=== PATIENT | male | born 1950 | race Caucasian/White ===

== ENCOUNTER 2020-01-26 07:37 | Outpatient (REF) | payer MEDICARE, OTHER, SELFPAY ==
[2020-01-26 11:54] LABS: Anion Gap 13 (12-20); Blood Urea Nitrogen 18 mg/dL (9-16); Calcium 8.4 mg/dL (8.4-10.2); Carbon Dioxide 26 mmol/L (22-29); Chloride 107 mmol/L (96-108); Cholesterol 217 mg/dL; Estimated Glomerular Filt Rate > 60; Glucose Fasting 89 mg/dL (60-99); HDL Cholesterol 47 mg/dL; LDL Cholesterol Calculated 146 mg/dl; Potassium 4.6 mmol/l (3.3-5.1); Sodium 141 mmol/L (135-145); Triglycerides 124 mg/dL
[2020-01-26 12:15] LABS: TSH reflex Free T4 2.52 mIU/mL (0.32-4.0)
== END 2020-01-26 07:38 | disposition home or self-care (01) ==
LOC: HO.HMGCLDS 07:37
PROVIDERS: PCP Nurse Practitioner Family; Visit Provider Nurse Practitioner Family
DX: F17.200 Nicotine dependence, unspecified, uncomplicated (principal)
CPT/HCPCS: 80048; 80061; 84443

== ENCOUNTER → 2020-02-11 09:49 | Outpatient (BNVA) | payer MEDICARE, OTHER, SELFPAY | PROVIDERS: PCP Nurse Practitioner Family; Visit Provider Urology | DX: N40.1 Benign prostatic hyperplasia with lower urinary tract symptoms (principal); N13.8 Other obstructive and reflux uropathy; R39.15 Urgency of urination; N39.0 Urinary tract infection, site not specified | CPT/HCPCS: Q3014 ==

== ENCOUNTER → 2020-02-23 08:40 | Outpatient (BNVA) | payer MEDICARE, OTHER, SELFPAY | PROVIDERS: PCP Nurse Practitioner Family; Visit Provider Urology | DX: N40.1 Benign prostatic hyperplasia with lower urinary tract symptoms (principal); R39.14 Feeling of incomplete bladder emptying; F17.210 Nicotine dependence, cigarettes, uncomplicated | CPT/HCPCS: 52000; 81002; 99212 ==

== ENCOUNTER → 2020-03-02 10:08 | Outpatient (BNVA) | payer MEDICARE, OTHER, SELFPAY | PROVIDERS: PCP Nurse Practitioner Family; Visit Provider Urology | DX: Z76.89 Persons encountering health services in other specified circumstances (principal) | CPT/HCPCS: 99212 ==

== ENCOUNTER 2020-03-21 09:26 | Outpatient (REF) | payer MEDICARE, OTHER, SELFPAY ==
[2020-03-21 11:43] LABS: Cholesterol 103 mg/dL; HDL Cholesterol 29 mg/dL; LDL Cholesterol Calculated 53 mg/dl; Triglycerides 105 mg/dL
== END 2020-03-21 09:27 | disposition home or self-care (01) ==
LOC: HO.HMGCLDS 09:26
PROVIDERS: PCP Nurse Practitioner Family; Visit Provider Internal Medicine
DX: Z20.828 Contact with and (suspected) exposure to other viral communicable diseases (principal)
CPT/HCPCS: 80061; C9803; U0003

== ENCOUNTER 2020-03-29 08:53 | Outpatient (REF) | payer MEDICARE, OTHER, SELFPAY | END 2020-03-29 08:54 | disposition home or self-care (01) | LOC: HO.LNP 08:53 | PROVIDERS: Visit Provider Urology | DX: N39.0 Urinary tract infection, site not specified (principal); N40.1 Benign prostatic hyperplasia with lower urinary tract symptoms; R39.14 Feeling of incomplete bladder emptying | CPT/HCPCS: 51798; 81002; 87086; 87088; 87186; 99212 ==

== ENCOUNTER → 2020-06-28 09:14 | Outpatient (BNVA) | payer MEDICARE, OTHER, SELFPAY | PROVIDERS: PCP Nurse Practitioner Family; Visit Provider Urology | DX: N40.1 Benign prostatic hyperplasia with lower urinary tract symptoms (principal); R39.14 Feeling of incomplete bladder emptying; N39.0 Urinary tract infection, site not specified | CPT/HCPCS: 51798; 99212 ==

== ENCOUNTER 2020-07-12 08:03 | Outpatient (REF) | payer MEDICARE, OTHER, SELFPAY ==
[2020-07-12 12:13] LABS: Alanine Aminotransferase 10 U/L (0-40); Albumin Level 4.3 g/dL (3.5-5.0); Alkaline Phosphatase 95 U/L (39-117); Anion Gap 16 (12-20); Aspartate Amino Transferase 7 U/L (5-37); Bilirubin Total 0.5 mg/dL (0.0-1.0); Blood Urea Nitrogen 28 mg/dL (9-16); Calcium 9.2 mg/dL (8.4-10.2); Carbon Dioxide 23 mmol/L (22-29); Chloride 110 mmol/L (96-108); Cholesterol 194 mg/dL; Estimated Glomerular Filt Rate > 60; Glucose Fasting 122 mg/dL (60-99); HDL Cholesterol 52 mg/dL; LDL Cholesterol Calculated 122 mg/dl; Potassium 4.8 mmol/L (3.3-5.1); Sodium 144 mmol/L (135-145); Total Protein 7.5 g/dL (6.5-8.0); Triglycerides 101 mg/dL
[2020-07-12 12:17] LABS: TSH reflex Free T4 0.94 uIU/mL (0.32-4.0)
== END 2020-07-12 08:04 | disposition home or self-care (01) ==
LOC: HO.HMGCLDS 08:03
PROVIDERS: PCP Nurse Practitioner Family; Visit Provider Nurse Practitioner Family
DX: E78.5 Hyperlipidemia, unspecified (principal)
CPT/HCPCS: 36415; 80053; 80061; 84443

== ENCOUNTER 2020-07-14 08:19 | Outpatient (REF) | payer MEDICARE, OTHER, SELFPAY ==
[2020-07-14 13:08] LABS: Estimated Average Glucose 105 mg/dL; Hemoglobin A1c % 5.3 %
== END 2020-07-14 08:20 | disposition home or self-care (01) ==
LOC: HO.HMGCLDS 08:19
PROVIDERS: PCP Nurse Practitioner Family; Visit Provider Nurse Practitioner Family
DX: R73.01 Impaired fasting glucose (principal)
CPT/HCPCS: 36415; 83036

== ENCOUNTER 2020-07-27 09:34 | Outpatient (REF) | payer MEDICARE, OTHER, SELFPAY ==
--- NOTE | ~2020-07-27 | US_ITS ---
EXAMINATION: US EXTRACRANIAL CAROTID DUPLEX, BILATERAL CLINICAL INFORMATION: This is a 69-year-old male with history of tobacco use, hyperlipidemia. Carotid artery disease. COMPARISON: None TECHNIQUE: Real-time ultrasound and Doppler techniques (integrating B-mode 2-D vascular images, Doppler spectral analysis and color-flow Doppler imaging) were utilized to interrogate the extracranial carotid arteries, the vertebral arteries and proximal subclavian arteries bilaterally. The degree of stenosis is determined by criteria similar to NASCET. FINDINGS: Right Side: 1. There is minimal atherosclerotic plaque seen in the bifurcation/proximal ICA region. 2. The common carotid artery PSV proximally is 89 cm/s and distally 60 cm/s. 3. The proximal internal carotid artery velocities are 49 cm/s systolic and 12 cm/s diastolic. 4. The proximal external carotid artery PSV is 86 cm/s. 5. The vertebral artery shows antegrade flow. 6. The subclavian artery waveforms are normal. Left Side: 1. There is a normal atherosclerotic plaque seen in the bifurcation/proximal ICA region. 2. The common carotid artery PSV proximally is 96 cm/s and distally 74 cm/s. 3. The proximal internal carotid artery velocities are 70 cm/s systolic and 14 cm/s diastolic. 4. The proximal external carotid artery PSV is 114 cm/s. 5. The vertebral artery shows antegrade flow. 6. The subclavian artery waveforms are normal. US/US carotid duplex BI IMPRESSION: 1. RIGHT: Minimal, non-hemodynamically significant stenosis of the proximal right internal carotid artery corresponding to a 0-49% stenosis by velocity criteria. 2. LEFT: Minimal, non-hemodynamically significant stenosis of the proximal left internal carotid artery corresponding to a 0-49% stenosis by velocity criteria. 3. An arrhythmia was demonstrated during the duplex portion of the examination. This would be best further evaluated with an EKG.
== END 2020-07-27 09:35 | disposition home or self-care (01) ==
LOC: HO.US 09:34
PROVIDERS: PCP Nurse Practitioner Family; Visit Provider Nurse Practitioner Family
DX: I65.23 Occlusion and stenosis of bilateral carotid arteries (principal); E78.5 Hyperlipidemia, unspecified; F17.200 Nicotine dependence, unspecified, uncomplicated
CPT/HCPCS: 93880

== ENCOUNTER → 2020-10-07 12:33 | Outpatient (REF) | payer MEDICARE, OTHER, SELFPAY ==
--- NOTE | 2020-10-07 13:05 | ECG_ITS ---
Hook-up date: 2020-10-07 12:56:00 Duration: 47:59:00 Test Indications: PALPITATIONS, SOB Medications: [id number] QRS complexes 7 Ventricular ectopics which represent <1 % of total QRS comp. 404 Supraventricular ectopics which represent <1 % of total QRS comp. * Paced QRS complexs which represent % of total QRS comp. VENTRICULAR ECTOPY 7 Isolated 0 Bigeminal Cycles 0 Couplets 0 Runs 0 Beats in Runs * Beats LONGEST at * BPM at :: -- * Beats FASTEST at * BPM at :: -- SUPRAVENTRICULAR ECTOPY 286 Isolated 40 Couplets 10 Runs 38 Beats in Runs 10 Beats LONGEST at 155 BPM at 17:45:20 2020-10-07 3 Beats FASTEST at 180 BPM at 16:06:54 2020-10-08 HEART RATES 45 MIN at 07:29:25 2020-10-09 75 AVG 130 MAX at 13:04:50 2020-10-07 LONGEST RR 1.6080 secs at 07:29:20 2020-10-09 S-T LEVELS Channel 1 - 128 mm at 12:56:00 2020-10-07 - 128 mm at 12:56:00 2020-10-07 Channel 2 - 128 mm at 12:56:00 2020-10-07 - 128 mm at 12:56:00 2020-10-07 Channel 3 - 128 mm at 03:21:51 -- - 128 mm at 03:21:51 Underlying rhythm is sinus; Average ventricular rate 75/min; Occasional PACs with some short runs; Rare PVCs; Patient did not report any symptoms in the diary Referred By: Javi Blair Overread By: NATASHA RODAS
== END ==
LOC: HO.CARD 12:33
PROVIDERS: Visit Provider Nurse Practitioner Family
DX: R00.2 Palpitations (principal); R06.02 Shortness of breath; I49.9 Cardiac arrhythmia, unspecified
CPT/HCPCS: 93225; 93226

== ENCOUNTER 2020-12-27 12:46 | Outpatient (REF) | payer MEDICARE, OTHER, SELFPAY | END 2020-12-27 12:47 | disposition home or self-care (01) | LOC: HO.LNP 12:46 | PROVIDERS: Visit Provider Urology | DX: N39.0 Urinary tract infection, site not specified (principal); N40.1 Benign prostatic hyperplasia with lower urinary tract symptoms; R39.14 Feeling of incomplete bladder emptying | CPT/HCPCS: 51798; 87086; 87088; 87186; 99212 ==

== ENCOUNTER 2021-01-11 11:19 | Outpatient (REF) | payer MEDICARE, OTHER, SELFPAY ==
--- NOTE | ~2021-01-11 | XR_ITS ---
EXAMINATION: XR HIP, LEFT CLINICAL INFORMATION: Left hip pain COMPARISON: None TECHNIQUE: Two views of the left hip. FINDINGS: Normal alignment with no fracture. Mild osteoarthritis with sclerosis and osteophyte formation along the superolateral acetabulum. There is a small rounded ossification along the superolateral acetabular rim which is most likely degenerative, possibly a remote fracture fragment. XR/XR hip LT min 2V IMPRESSION: Mild left hip osteoarthritis. No acute abnormality.
--- NOTE | ~2021-01-11 | XR_ITS ---
EXAMINATION: XR LUMBOSACRAL SPINE CLINICAL INFORMATION: M54.50 - Low back pain, unspecified COMPARISON: None TECHNIQUE: Three views of the lumbosacral spine. 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 Vertebral bodies are normal in height. There is normal lumbar lordosis. No vertebral compression or destructive process. There are multilevel degenerative disc and degenerative facet changes along with variable multilevel bridging anterior and lateral vertebral osteophytes. There is a borderline grade 0-1 spondylolisthesis at L4-L5 likely related to the degenerative changes. The SI joints and remainder of visualized sacrum are unremarkable. XR/XR lumbar spine 2-3V IMPRESSION: 1. Multilevel degenerative disc and degenerative facet changes with variable multilevel bridging osteophytes. 2. Borderline grade 0-1 spondylolisthesis L4-L5 likely related to the degenerative changes. 3. 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
== END 2021-01-11 11:20 | disposition home or self-care (01) ==
LOC: HO.HMGCX 11:19
PROVIDERS: PCP Nurse Practitioner Family; Visit Provider Nurse Practitioner Family
DX: M25.552 Pain in left hip (principal); M54.50 Low back pain, unspecified
CPT/HCPCS: 72100; 73502

== ENCOUNTER 2021-01-12 07:47 | Outpatient (REF) | payer MEDICARE, OTHER, SELFPAY ==
[2021-01-12 11:34] LABS: Appearance Urine CLOUDY; Color Urine YELLOW; Glucose Urine UA NEG (NEG); Leukocyte Esterase Urine 2+ (NEG); Nitrite Urine POS (NEG); Specific Gravity - Urine 1.015 (1.005-1.025); UACC Culture Trigger YES; Urine Blood 1+ (NEG); Urine Ketones NEG (NEG); Urine Protein TRACE MG/DL (NEG-TRACE)
[2021-01-12 11:42] LABS: Bacteria Urine 1+ /LPF; Mucus Urine 1+ /LPF; Squamous Epithelial Cell Urine TRACE /LPF; WBC Urine 30-49 /HPF (0-4)
[2021-01-12 12:01] LABS: Alanine Aminotransferase 6 U/L (0-40); Alkaline Phosphatase 80 U/L (39-117); Anion Gap 11 (12-20); Aspartate Amino Transferase 7 U/L (5-37); Bilirubin Total 0.6 mg/dL (0.0-1.0); Blood Urea Nitrogen 16 mg/dL (9-16); Calcium 8.6 mg/dL (8.4-10.2); Carbon Dioxide 23 mmol/L (22-29); Chloride 111 mmol/L (96-108); Cholesterol 166 mg/dL; Estimated Glomerular Filt Rate > 60; Glucose Fasting 104 mg/dL (60-99); HDL Cholesterol 40 mg/dL; LDL Cholesterol Calculated 105 mg/dl; Potassium 4.3 mmol/L (3.3-5.1); Sodium 141 mmol/L (135-145); Total Protein 6.8 g/dL (6.5-8.0); Triglycerides 107 mg/dL
[2021-01-12 12:09] LABS: TSH reflex Free T4 3.05 uIU/mL (0.32-4.0)
== END 2021-01-12 07:48 | disposition home or self-care (01) ==
LOC: HO.HMGCLDS 07:47
PROVIDERS: PCP Nurse Practitioner Family; Visit Provider Nurse Practitioner Family
DX: I10 Essential (primary) hypertension (principal)
CPT/HCPCS: 36415; 80053; 80061; 81001; 84443; 87086; 87088; 87186

== ENCOUNTER 2021-04-03 12:04 | Outpatient (REF) | payer MEDICARE, OTHER, SELFPAY ==
--- NOTE | 2021-04-04 12:26 | MHC.AU.ANO ---
Adult Audiological Evaluation Date of Visit: 04/03/21 [employer] Manufacturing Leader Used: Not Applicable Reason for Appointment: Audiologic evaluation due to increasing hearing difficulties, right ear greater than left. Dale reports his primary care has periodically cleared wax from his ears; however, the hearing difficulties have increased. Has hearing been tested previously?: No Hearing Handicap Inventory: HHIE SCORE: 20 Based on HHIE score, patient has: Mild to moderate perceived hearing handicap Ear History: Family History of Hearing Loss?: Yes: Father, Daughter, and Nephew (since ) Ear used on the phone: Left Ear History of occupational noise exposure?: Yes History: History: No Medical History: Medical History: High Blood Pressure, Arthritis, Tobacco Use Medication List: Finesteride, Methenamine Hippurate, Lisinopril, Meloxicam, Vitamin C Otoscopy: Right Ear: Partially occluding cerumen with question of impacted cerumen very deep Left Ear: Unremarkable Tympanometry: Tympanometry performed due to: To assess integrity of the middle ear system Right Ear: Non-compliant Middle Ear System (Type B) Left Ear: Normal Middle Ear System (Type A) Otoacoustic Emissions Not performed at today's visit. Hearing Evaluation: Transducer(s) Used: Insert Earphones Bone Conduction Method: Conventional Audiometry Stimuli Used: Pure Tones Right Ear: Description of Hearing: Severe to profound mixed hearing loss Left Ear: Description of Hearing: Moderate to severe sensorineural hearing loss Speech Recognition Threshold (SRT): Method Used: Monitored Live Voice Stimuli Used: Spondee Words Right Ear: 65 dB HL Left Ear: 45 dB HL Word Discrimination: Method: Recorded Lists Word Lists Used: NU-6 Right Ear: 84% at 95 dB HL Left Ear: 84% at 85 dB HL Most Comfortable Level (MCL): Right Ear: 95 dB HL Left Ear: 85 dB HL Interpretation of Results: With this very significant asymmetric hearing loss, Dale may know someone is speaking; however, he will have difficulty understanding what was said. He will also have difficulty hearing many environmental sounds. The asymmetry is likely related to the non-functioning right middle ear system. If the middle ear dysfunction resolves, the right hearing thresholds will likely improve and be similar to the left ear levels. Recommendations: - Referral to Ear, Nose, and Throat to address right ear cerumen and middle ear dysfunction. Audiologic re-evaluation should be performed if further cerumen can be removed. - Trial with amplification is recommended. Medical clearance from a physician is required before fitting. It is noted Dale's current [facility] [employer] Medicaid Plan does not cover hearing aids. If Dale would like to obtain hearing aids, he is advised to contact [facility] to determine if he may be able to change to a plan which has hearing aid coverage. Dale may also contact [facility] at [phone] to determine if he may be eligible for hearing aids through this state program. - Audiological re-evaluation in one year. Will send a reminder card. Diagnosis: Primary Diagnosis: H90.3 Bilateral Sensorineural Hearing Loss Secondary Diagnosis: H69.91 Unspecified Eustachian Tube Dysfunction, Right Ear Services Performed: Comprehensive Audiological Evaluation (CPT 03515) Tympanometry (CPT 90651) Signature: Provider: Carmela Seals, CCC-A
== END 2021-04-03 12:05 | disposition home or self-care (01) ==
LOC: HO.SH 12:04
PROVIDERS: Visit Provider Nurse Practitioner Family
DX: H90.3 Sensorineural hearing loss, bilateral (principal); H69.91 Unspecified Eustachian tube disorder, right ear
CPT/HCPCS: 92557; 92567

== ENCOUNTER 2021-06-28 13:02 | Outpatient (REF) | payer MEDICARE, OTHER, SELFPAY | END 2021-06-28 13:03 | disposition home or self-care (01) | LOC: HO.LAB 13:02 | PROVIDERS: PCP Nurse Practitioner Family; Visit Provider Urology | DX: N39.0 Urinary tract infection, site not specified (principal); N52.9 Male erectile dysfunction, unspecified; F17.210 Nicotine dependence, cigarettes, uncomplicated; N40.1 Benign prostatic hyperplasia with lower urinary tract symptoms; R39.14 Feeling of incomplete bladder emptying | CPT/HCPCS: 51798; 87086; 87088; 87186; 99212 ==

== ENCOUNTER → 2021-12-29 09:46 | Outpatient (BNVA) | payer MEDICARE, OTHER, SELFPAY | PROVIDERS: PCP Nurse Practitioner Family; Visit Provider Urology | DX: N40.1 Benign prostatic hyperplasia with lower urinary tract symptoms (principal); R39.14 Feeling of incomplete bladder emptying; R39.15 Urgency of urination; N39.0 Urinary tract infection, site not specified | CPT/HCPCS: 51798; 99212 ==

== ENCOUNTER 2022-02-02 08:36 | Outpatient (REF) | payer MEDICARE, SELFPAY ==
[2022-02-02 11:31] LABS: Appearance Urine Clear; Color Urine Yellow; Glucose Urine UA Negative (Negative); Leukocyte Esterase Urine Trace (Negative); Nitrite Urine Negative (Negative); Specific Gravity - Urine 1.015 (1.005-1.025); UMIC TRIGGER UACC YES; Urine Blood Negative (Negative); Urine Ketones Negative (Negative); Urine Protein Trace mg/dL (Neg-Trace)
[2022-02-02 11:40] LABS: Bacteria Urine None Seen (None Seen); Hyaline Casts Urine 0-2 /LPF (0-2); RBC Urine 0-2 /HPF (0-2); Squamous Epithelial Cell Urine 0-2 /HPF (0-2); WBC Urine 0-5 /HPF (0-5)
[2022-02-02 12:16] LABS: TSH reflex Free T4 1.47 uIU/mL (0.32-4.0)
[2022-02-02 12:26] LABS: Alanine Aminotransferase 10 U/L (0-40); Albumin Level 4.3 g/dL (3.5-5.0); Alkaline Phosphatase 73 U/L (39-117); Anion Gap 17 (12-20); Aspartate Amino Transferase 10 U/L (5-37); Bilirubin Total 0.7 mg/dL (0.0-1.0); Blood Urea Nitrogen 20 mg/dL (9-16); Calcium 8.9 mg/dL (8.4-10.2); Carbon Dioxide 21 mmol/L (22-29); Chloride 109 mmol/L (96-108); Cholesterol 199 mg/dL; Estimated Glomerular Filt Rate 58; Glucose Fasting 100 mg/dL (60-99); HDL Cholesterol 44 mg/dL; LDL Cholesterol Calculated 133 mg/dl; Potassium 4.7 mmol/L (3.3-5.1); Sodium 142 mmol/L (135-145); Total Protein 6.9 g/dL (6.5-8.0); Triglycerides 111 mg/dL
== END 2022-02-02 08:37 | disposition home or self-care (01) ==
LOC: HO.HMGCLDS 08:36
PROVIDERS: PCP Nurse Practitioner Family; Visit Provider Nurse Practitioner Family
DX: I10 Essential (primary) hypertension (principal)
CPT/HCPCS: 36415; 80053; 80061; 81001; 84443

== ENCOUNTER 2022-06-26 10:03 | Outpatient (REF) | payer MEDICARE, MEDICAID, SELFPAY ==
[2022-06-26 12:43] LABS: Prostate Specific Antigen 1.07 ng/mL (<0.05-4.0)
== END 2022-06-26 10:04 | disposition home or self-care (01) ==
LOC: HO.HMGCLDS 10:03
PROVIDERS: PCP Nurse Practitioner Family; Visit Provider Urology
DX: N40.1 Benign prostatic hyperplasia with lower urinary tract symptoms (principal); Z12.5 Encounter for screening for malignant neoplasm of prostate
CPT/HCPCS: 36415; 84153

== ENCOUNTER → 2022-07-03 08:30 | Outpatient (BNVA) | payer MEDICARE, OTHER, SELFPAY | PROVIDERS: PCP Nurse Practitioner Family; Visit Provider Urology | DX: N40.1 Benign prostatic hyperplasia with lower urinary tract symptoms (principal); N13.8 Other obstructive and reflux uropathy; R39.15 Urgency of urination; N52.9 Male erectile dysfunction, unspecified; Z79.899 Other long term (current) drug therapy | CPT/HCPCS: 51798; 99212 ==

== ENCOUNTER 2023-01-03 08:09 | Outpatient (AMB) | payer MEDICARE, MEDICAID, SELFPAY ==
--- NOTE | 2023-01-03 08:26 | A.OFFVIS_ITS ---
Intake Intake Visit Reasons: 6m/PVR Intake Note: Patient is Present for Follow Up PVR Urology Medication: Bethanechol, Finasteride, Methenamine Antibiotic Allergies:None Blood Thinners: None [facility]: [facility] PVR: 365 Allergies No Known Allergies [No Known Allergies*] Allergy (Verified 01/03/23 08:27) Medication List - Last Reconciled 01/03/23 by Clint Wong MD ascorbic acid (vitamin C) 1 g PO DAILY 90 days bethanechol chloride 50 mg PO BID 90 days finasteride 5 mg PO DAILY 90 days lisinopril 10 mg PO DAILY 90 days meloxicam 7.5 mg PO DAILY PRN 30 days methenamine hippurate 1 g PO DAILY 90 days rosuvastatin (Crestor) 10 mg PO DAILY 90 days HPI HPI Comments History of Present Illness Details Dale is a pleasant male. He is a patient of Dr. Asencio. he seen for the following urologic conditions - neurogenic bladder PVR 360 On bethanechol with vitamin-C and methenamine Discussed InterStim again Continue current medication Lower Urinary Tract Symptoms: Prior treatments include 09/09 office laser procedure 04/12 laser anterior tissue - post procedure retention and hematuria, recurring UTI. - 08/11 suppression antibiotics 3 months Keflex Prostate Symptom Score Moderate (9-19), Bother 3. Symptoms include weak stream, nocturia (>2), and are improving. Results from testing include cystoscopy Trilobar hypertrophy anterior tissue renal/bladder us Yes date 01/03/2017 PVR 122 prostate size 95 Prior Prostate Score severe. PSA 12/09 3.65, 01/10 4.9, 08/11 1.8. Prostate volume 50+gm. Testing at next visit will include PVR PFSH Medical History Smoker Radiculitis, cervical Smoker Surgical History History of transurethral resection of prostate Webbed fingers of both hands Family History Father Chewing tobacco use Mother Skin cancer Smoker Brother No problems noted. Sister No problems noted. Daughter No problems noted. Social History Housing: Apartment Alcohol intake: former Patient Tobacco Use Status: Current everyday Tobacco user Cigarette Packs Per Day: 1 Cigarettes Per Day: 15 e-Cigarette/Vaping Use: Never Used Second Hand Smoke Exposure: No service: No Current occupational status: retired Cognitive needs: No Hearing needs: No Vision needs: No Review of Systems Const Denies chills and Denies fever(s) Card Reports no additional complaints and Denies syncope Resp Denies cough GI Denies abdominal pain and Denies heartburn Reports as per HPI and Denies change in libido Neuro Denies syncope Psych Denies change in libido Endo Denies change in libido Physical Exam Const General: cooperative, healthy appearing, comfortable and no acute distress Orientation/consciousness: patient oriented x3 HEENT Face and sinus: Yes normal facial exam Mouth: moist mucous membranes Neck Neck: Yes normal visual inspection, Yes full ROM and Yes trachea midline Chest Chest palpation & inspection: normal inspection of the chest Resp Effort & Inspection: normal respiratory effort, able to speak in complete sentences and no respiratory distress GI Inspection: Yes normal to inspection Back/Spine/Pelvis Cervical Spine: normal cervical lordosis Thoracic/Lumbar Spine: thoracic and lumbar spine normal to inspection Skin General skin exam: no rashes or lesions noted Neuro General: patient oriented x3, gait normal, tone normal and moves all extremities Extrem General: Yes normal to inspection and Yes capillary refill normal Office Procedures Post Void Residual Post Residual Void Post Void Residual (PVR): 365 [id number] Void Residual by ultrasound Results AMB Urinalysis, Automated UA Leukoctes 0 Ten/uL Last Edit by HARJEET Neri on 01/03/23 08:38 UA Nitrite Negative Last Edit by HARJEET Neri on 01/03/23 08:38 UA Urobilinogen 0.2 mg/dL Last Edit by HARJEET Neri on 01/03/23 08:3 8 UA Protein 0 mg/dL Last Edit by HARJEET Neri on 01/03/23 08:38 UA pH 6.0 Last Edit by HARJEET Neri on 01/03/23 08:38 UA Blood 0 Eris/uL Last Edit by HARJEET Neri on 01/03/23 08:38 UA Specific [place] 1.015 Last Edit by HARJEET Neri on 01/03/23 08: 38 UA Ketone Negative Last Edit by HARJEET Neri on 01/03/23 08:38 UA Bilirubin 0 mg/dL Last Edit by HARJEET Neri on 01/03/23 08:38 UA Glucose 0 mg/dL Last Edit by HARJEET Neri on 01/03/23 08:38 Results Reviewed Results Reviewed: Laboratory Last Values Urine pH (Auto) 6.0 01/03/23 08:31 Specific [place] (Auto) 1.015 01/03/23 08:31 Urine Protein (Auto) 0 mg/dL 01/03/23 08:31 Glucose (UA)(Auto) 0 mg/dL 01/03/23 08:31 Urine Ketones (Auto) Negative 01/03/23 08:31 Urine Blood (Auto) 0 Eris/uL 01/03/23 08:31 Urine Nitrite (Auto) Negative 01/03/23 08:31 Urine Bilirubin (Auto) 0 mg/dL 01/03/23 08:31 Urine Urobilinogen (Auto) 0.2 mg/dL 01/03/23 08:31 Leukocyte Esterase (Auto) 0 Ten/uL 01/03/23 08:31 Assessment & Plan Assessment & Plan (1) Recurrent UTI (urinary tract infection): Comment: Failed suppression for 3 months September 2019 Code(s): N39.0 - Urinary tract infection, site not specified (2) Incomplete emptying of bladder due to benign prostatic hyperplasia: Code(s): N40.1 - Benign prostatic hyperplasia with lower urinary tract symptoms; R39.14 - Feeling of incomplete bladder emptying (3) Hypotonic neurogenic bladder: Code(s): N31.9 - Neuromuscular dysfunction of bladder, unspecified Plan Six month follow-up PVR Orders: Orders AMB Post Void Residual by ultrasound Today N40.1 - Benign prostatic hyperplasia with lower urinary tract symptoms, R39.14 - Feeling of incomplete bladder emptying AMB Urinalysis Automated Today Z13.9 - Encounter for screening, unspecified Medications: Refilled methenamine hippurate 1 g PO DAILY 90 tabs 1RF 90 days N39.0 - Urinary tract infection, site not specified ascorbic acid (vitamin C) 1 g PO DAILY 90 tabs 1RF 90 days N39.0 - Urinary tract infection, site not specified bethanechol chloride 50 mg PO BID 180 tabs 1RF 90 days N40.1 - Benign prostatic hyperplasia with lower urinary tract symptoms, R39.14 - Feeling of incomplete bladder emptying Patient Instructions: Imaging studies, laboratory and physical exam results were discussed and reviewed in detail. No major barriers to patient understanding were identified. An opportunity to ask questions regarding the treatment plan was provided. All questions were answered. The patient expressed understanding and agreement with the above treatment plan. The patient is aware they should contact our office by phone for worsening of their current condition or the appearance of new urologic symptoms. Compliance is encouraged with any medications and followup testing that is ordered. It is a privilege to participate in the urologic care of your patient. If you have any questions or concerns regarding treatment for the above conditions, or other urologic issues, please do not hesitate to contact me. The office telephone contact is [phone]. This note is constructed using voice recognition software. While every effort has been made to ensure accuracy railroad track inspector errors may have been included. Yours sincerely, Dr Clint Wong MD, [facility] - Urology Providers of Expert, Compassionate Care for the Genitourinary System Coding Level of Care Code Est Pt Level 3 (54406) Diagnoses Recurrent UTI (urinary tract infection) N39.0 Incomplete emptying of bladder due to benign prostatic hyperplasia N40.1; R39.14 Hypotonic neurogenic bladder N31.9 CPT Codes Post Residual Void - PVR CPT Code: 71644-Evji Void Residual by ultrasound ([id number])
== END 2023-01-03 08:47 | disposition home or self-care (01) ==
PROVIDERS: PCP Nurse Practitioner Family; Visit Provider Urology
DX: N39.0 Urinary tract infection, site not specified (principal); N40.1 Benign prostatic hyperplasia with lower urinary tract symptoms; R39.14 Feeling of incomplete bladder emptying; N31.9 Neuromuscular dysfunction of bladder, unspecified; Z13.9 Encounter for screening, unspecified
CPT/HCPCS: 99213

== ENCOUNTER → 2023-01-03 08:09 | Outpatient (BNVA) | payer MEDICARE, MEDICAID, SELFPAY | PROVIDERS: Visit Provider Urology | DX: N31.9 Neuromuscular dysfunction of bladder, unspecified (principal); N40.1 Benign prostatic hyperplasia with lower urinary tract symptoms; R39.14 Feeling of incomplete bladder emptying; N39.0 Urinary tract infection, site not specified | CPT/HCPCS: 51798; 81003; 99212 ==

== ENCOUNTER 2023-04-10 14:41 | Outpatient (AMB) | payer MEDICARE, SELFPAY ==
--- NOTE | 2023-04-10 14:43 | MHC.PC.OV ---
Vital Signs 04/10/23 14:49 Weight 129 lb BP 128/72 Blood Pressure Location Rt brachial Position Sitting Pulse 80 Pulse Source Pulse Oximeter Pulse Oximetry (%) 97 Oxygen Delivery Method Room Air Intake Visit Reasons: AWV [id number] 08/23/2017 Allergies No Known Allergies [No Known Allergies*] Allergy (Verified 04/10/23 14:49) Tobacco use date assessed: 04/10/23 Fall risk assessment: No Falls in past year Last assessed Fall Risk: 04/10/23 Dental Screening Dental Screen Date: 04/10/23 Did you have a dental visit in the last 12 months?: No Did you have a dental problem in the last 6 months where you did not have access to dental care?: No Was dental information given to patient?: Patient has dentist [facility] Medical History Smoker Radiculitis, cervical Smoker Surgical History History of transurethral resection of prostate Webbed fingers of both hands Family History Father Chewing tobacco use Mother Skin cancer Smoker Brother No problems noted. Sister No problems noted. Daughter No problems noted. Social History Housing: Apartment Alcohol intake: former Patient Tobacco Use Status: Current everyday Tobacco user Cigarette Packs Per Day: 1 Cigarettes Per Day: 15 e-Cigarette/Vaping Use: Never Used Second Hand Smoke Exposure: No service: No Current occupational status: retired Cognitive needs: No Hearing needs: No Vision needs: Yes Questionnaire Thrive Questionnaire Date Thrive assessed: 08/08/22 KARLIE-7 AMB Questionnaire KARLIE-7 Date KARLIE - 7 assessed: 08/08/22 Source: Developed by Drs. Aashish Lawton, Apolonia López, Wilfrido Concepcion and colleagues, with an educational jefferson from [employer]. Physical exam (Primary Care) Vital Signs: Last Vital Signs Pulse 80 04/10/23 14:49 BP 128/72 04/10/23 14:49 Pulse Ox 97 04/10/23 14:49 Oxygen Delivery Method Room Air 04/10/23 14:49 Tobacco/Smoking Status: Tobacco use Status Tobacco use date assessed 04/10/23 04/10/23 14:51 Patient Tobacco Use Status Current everyday Tobacco 04/10/23 14:46 e-Cigarette/Vaping Use Never Used 04/10/23 14:46 Thrive Assessment: Date of Thrive Assessment Date Thrive assessed 08/08/22 04/10/23 14:46 Coding
[2023-04-10 14:49] VITALS: BP 128/72; PULSE 80; O2SAT 97
--- NOTE | 2023-04-10 15:05 | AM.OFFVISMDC ---
Intake Vital Signs 04/10/23 14:49 Weight 129 lb BP 128/72 Blood Pressure Location Rt brachial Position Sitting Pulse 80 Pulse Source Pulse Oximeter Pulse Oximetry (%) 97 Oxygen Delivery Method Room Air Intake Visit Reasons: AWV G0438 08/23/2017 Allergies No Known Allergies [No Known Allergies*] Allergy (Verified 04/10/23 14:49) HPI AWV G0438 08/23/2017 HPI Details Pt is here for an AWV. Denies fever, chills, and dizziness. [place] of care not filled out. PPP will be scanned in chart and copy will be given to pt. [facility] Medical History Smoker Radiculitis, cervical Smoker Surgical History History of transurethral resection of prostate Webbed fingers of both hands Family History Father Chewing tobacco use Mother Skin cancer Smoker Brother No problems noted. Sister No problems noted. Daughter No problems noted. Social History Housing: Apartment Alcohol intake: former Patient Tobacco Use Status: Current everyday Tobacco user Cigarette Packs Per Day: 1 Cigarettes Per Day: 15 e-Cigarette/Vaping Use: Never Used Second Hand Smoke Exposure: No service: No Current occupational status: retired Cognitive needs: No Hearing needs: No Vision needs: No Questionnaire Medicare Wellness Checkup [age] What gender do you identify with?: male During the past 4 weeks, how much have you been bothered by emotional problems such as feeling anxious, depressed, irritable, sad or downhearted, and blue?: not at all During the past 4 weeks, has your physical & emotional health limited your social activities with family, friends, neighbors, or groups?: not at all During the past 4 weeks, how much bodily pain have you generally had?: very mild pain During the past 4 weeks, was someone available to help you if you needed & wanted help?: no, not at all During the past 4 weeks, what was the hardest physical activity you could do for at least 2 minutes?: very light Can you get to places out of walking distance without help? (For eg., can you travel alone on buses, taxis or drive your car?): Yes Can you go shopping for groceries or clothes without someone's help?: Yes Can you prepare your own meals?: Yes Can you do your housework without help?: Yes Because of any health problems, do you need the help of another person with your personal care needs such as eating, bathing, dressing or getting around the house?: No Can you handle your own money without help?: Yes During the past 4 weeks, how would you rate your health in general?: good During the past 4 weeks how have things been going for you?: pretty well Are you having difficulties driving your car?: no Do you always fasten your seat belt when you are in a car?: yes, usually During past 4 weeks, have you been bothered by the following: never: Falling or dizzy when standing up, Sexual problems?, Trouble eating well?, Teeth or denture problems?, Problems using the telephone? and Tiredness or fatigue? Have you fallen 2 or more times in the past year?: No Are you afraid of falling?: No Are you a smoker?: yes, and I might quit During the past 4 weeks, how many drinks of wine, beer, or other alcoholic beverages did you have?: no alcohol at all Do you exercise for about 20 minutes 3 or more times a week?: no, I usually do not exercise this much Have you been given information to help with the following?: no: Hazards in your house that might hurt you? and no: Keeping track of your medications? How often do you have trouble taking medicines the way you have been told to take them?: I always take medicine as prescribed How confident are you that you can control & manage most of your health problems?: somewhat confident What is your race?: White Mini Mental State Exam (MMSE) Orientation What is the (year) (season) (date) (day) (month)?: year (2023) Where are we (state) (county) (town or city) (hospital) (floor)?: state (ok) Registration Name of 3 unrelated objects clearly and slowly, then ask patient to repeat all 3 of them. (1st repeat determines score. Make sure they can repeat all three): object 1, object 2 and object 3 Attention & Calculation (CHOOSE ONE) Spell WORLD backwards (DLROW): 5 letters Recall Ask patient to repeat the 3 items from question #3.: object 1, object 2 and object 3 Language Show patient a wristwatch & ask what it is. Repeat for pencil.: watch and pencil Ask the patient to repeat the phrase 'No ifs, ands, or buts' after you.: correct Ask the patient to 'take a piece of paper with their right hand' 'fold paper in half' 'place paper on floor': take paper in right hand, fold paper in half and place paper on floor Print the sentence 'CLOSE YOUR EYES' on a piece. If patient actually closes eyes then score.: followed written direction Give patient a blank piece of paper & ask to write a sentence. Score if it contains a noun & verb.: sentence contains subject and verb Ask patient to copy figure of intersecting pentagons exactly. Score if all 10 angles & 2 intersects are included.: all 10 angles present & 2 are intersected Score Score: 22 Activity of Daily Living Bathing - sponge bath, tub bath or shower: receives no assistance (gets in/out by self, if usual bathing means Dressing - getting clothes from closets & drawers, including inner/outer garments & fasteners.: gets clothes & gets completely dressed without help Toileting - going to the 'toilet room' for urine/bowel elimination & cleaning self/arranging clothes: goes to toilet room, cleans self, arranges clothes without help Transfer: moves in & out of bed and chair without help (may use support object) Continence: controls urination/bowel movements completely by self Feeding: feeds self without help Total Score: 0 Information obtained from: patient Using telephone: independent Traveling: independent Shopping: independent Preparing meals: independent Housework: independent Taking medicine: independent Managing money: independent PHQ-9 Over the last 2 weeks, how often have you been bothered by any of the following problems? 1. Little interest or pleasure in doing things: not at all 2. Feeling down, depressed, or hopeless: not at all 3. Trouble falling or staying asleep, or sleeping too much: not at all 4. Feeling tired or having little energy: not at all 5. Poor appetite or overeating: not at all 6. Feeling bad about yourself - or that you are a failure or have let yourself or your family down: not at all 7. Trouble concentrating on things, such as reading the newspaper or watching television: not at all 8. Moving or speaking so slowly that other people could have noticed. Or the opposite - being so fidgety or restless that you have been moving around a lot more than usual: not at all 9. Thoughts that you would be better off or of hurting yourself in some way: not at all Total score: 0 Depression Screening Interpretation: Negative Depression Screening Done: Yes 96786 - PHQ-9 Billing: Yes Source: Developed by Drs. Aashish Lawton, Apolonia López, Wilfrido Concepcion and colleagues, with an educational jefferson from [employer]. Review of Systems Const Reports as per HPI Physical Exam Vital Signs: Last Vital Signs Pulse 80 04/10/23 14:49 BP 128/72 04/10/23 14:49 Pulse Ox 97 04/10/23 14:49 Oxygen Delivery Method Room Air 04/10/23 14:49 Const General: cooperative Orientation/consciousness: patient oriented x3 Neuro Other: - romberg, can tandem walk, can walk and turn, can rise from sitting to standing, did not pass whisper test General: patient oriented x3 Psych Appearance: grossly normal Mental Status: mental status grossly normal Speech and movement: Normal speech and movement present Affect: normal affect Attitude: cooperative Thought process: Normal thought process present Thought content: Normal thought content present Insight: Good insight present (Psych) Judgement: Good judgement present (Psych) Assessment & Plan Assessment & Plan (1) Decreased hearing: Code(s): H91.90 - Unspecified hearing loss, unspecified ear Plan: Referred for hearing screen (2) Encounter for annual wellness visit (AWV) in Medicare patient: Code(s): Z00.00 - Encounter for general adult medical examination without abnormal findings Plan: Forms given to pt Plan The patient agreed to the use of a medical diagnostic radiographer for this encounter. Scribed for AYSHA Jolly by Minnie Park medical diagnostic radiographer, on 04/10/2023 at 15:05 EST. Orders: Referrals Speech and Hearing Referral H91.90 - Unspecified hearing loss, unspecified ear Medications: Refilled ascorbic acid (vitamin C) 1 g PO DAILY 90 days 90 tabs 1RF N39.0 - Urinary tract infection, site not specified lisinopril 10 mg PO DAILY 90 days 90 tabs 1RF rosuvastatin (Crestor) 10 mg PO DAILY 90 days 90 tabs 1RF meloxicam 7.5 mg PO DAILY 30 days PRN 30 tabs 2RF arthritis pain Quality Reporting (2019) Depression/Bipolar (159/160/161/177) PHQ-9: Total score: 0 Coding Level of Care Code Medicare First (G0438) Diagnoses Decreased hearing H91.90 Encounter for annual wellness visit (AWV) in Medicare patient Z00.00 CPT Codes Advance Care Planning - Time spent: 1-15 minutes, on File ([id number]) Advance Care Planning Forms completed: Health Care Proxy (form given to pt to fill out), MOLST (form filled out by pt, copy in scan pile) and Living will (not done, pt is not interested) Time spent: 1-15 minutes, on File Actual minutes spent: 15
== END 2023-04-10 16:42 | disposition home or self-care (01) ==
PROVIDERS: Visit Provider Nurse Practitioner Family
DX: H91.90 Unspecified hearing loss, unspecified ear (principal); Z00.00 Encounter for general adult medical examination without abnormal findings
CPT/HCPCS: 1123F; G0438

== ENCOUNTER 2023-05-17 09:00 | Outpatient (REF) | payer MEDICARE, MEDICAID, SELFPAY | END 2023-05-17 09:01 | disposition home or self-care (01) | LOC: HO.SH 09:00 | PROVIDERS: Visit Provider Nurse Practitioner Family | DX: Z01.10 Encounter for examination of ears and hearing without abnormal findings (principal); H90.3 Sensorineural hearing loss, bilateral | CPT/HCPCS: 92557; 92567 ==

== ENCOUNTER 2023-05-23 08:23 | Outpatient (AMB) | payer MEDICARE, MEDICAID, SELFPAY ==
--- NOTE | 2023-05-23 08:27 | MHC.PC.OV ---
Vital Signs 05/23/23 08:28 Height 5 ft 10 in Weight 130 lb 4 oz BMI 18.7 BP 140/76 H Blood Pressure Location Rt brachial Pulse 85 Pulse Source Pulse Oximeter Pulse Oximetry (%) 98 Oxygen Delivery Method Room Air Intake Visit Reasons: Ear wax removal Intake Note: pt went to hearing and speech and pt was told he has wax in his right ear the needs to be removed so they can do a mold of his ear Allergies No Known Allergies [No Known Allergies*] Allergy (Verified 05/23/23 09:00) Medication List - Last Reconciled 05/23/23 by AYSHA Agrawal ascorbic acid (vitamin C) 1 g PO DAILY 90 days bethanechol chloride 50 mg PO BID 90 days finasteride 5 mg PO DAILY 90 days lisinopril 10 mg PO DAILY 90 days meloxicam 7.5 mg PO DAILY PRN 30 days methenamine hippurate 1 g PO DAILY 90 days rosuvastatin (Crestor) 10 mg PO DAILY 90 days Tobacco use date assessed: 05/23/23 Fall risk assessment: No Falls in past year Last assessed Fall Risk: 05/23/23 Dental Screening Dental Screen Date: 05/23/23 Did you have a dental visit in the last 12 months?: No Did you have a dental problem in the last 6 months where you did not have access to dental care?: No Was dental information given to patient?: No HPI Ear wax removal HPI Details Pt reports excessive cerumen to his right ear. He has been using debrox at home. Will flush in office. Denies fever, chills, and dizziness. [facility], [facility] Medical History Smoker Radiculitis, cervical Smoker Surgical History History of transurethral resection of prostate Webbed fingers of both hands Family History Father Chewing tobacco use Mother Skin cancer Smoker Brother No problems noted. Sister No problems noted. Daughter No problems noted. Social History Housing: Apartment Alcohol intake: former Patient Tobacco Use Status: Current everyday Tobacco user Cigarette Packs Per Day: 1 Cigarettes Per Day: 15 e-Cigarette/Vaping Use: Never Used Second Hand Smoke Exposure: No service: No Current occupational status: retired Cognitive needs: No Hearing needs: No Vision needs: No Questionnaire Thrive Questionnaire Date Thrive assessed: 08/08/22 KARLIE-7 AMB Questionnaire KARLIE-7 Date KARLIE - 7 assessed: 08/08/22 Source: Developed by Drs. Aashish Lawton, Apolonia López, Wilfrido Concepcion and colleagues, with an educational jefferson from [employer]. Review of Systems Const Reports as per HPI Physical exam (Primary Care) Vital Signs: Last Vital Signs Pulse 85 05/23/23 08:28 BP 140/76 H 05/23/23 08:28 Pulse Ox 98 05/23/23 08:28 Oxygen Delivery Method Room Air 05/23/23 08:28 BMI result Body Mass Index 18.7 Tobacco/Smoking Status: Tobacco use Status Tobacco use date assessed 05/23/23 05/23/23 08:35 Patient Tobacco Use Status Current everyday Tobacco 05/23/23 08:27 e-Cigarette/Vaping Use Never Used 05/23/23 08:27 Thrive Assessment: Date of Thrive Assessment Date Thrive assessed 08/08/22 05/23/23 08:27 Const General: cooperative Orientation/consciousness: patient oriented x3 HENMT Other: right ear with excessive cerumen, after ear lavage TM easily seen Resp Effort & Inspection: normal respiratory effort Auscultation: diminished lung sounds (though moving air) Cardio Rate: regular rate Rhythm: regular rhythm Heart sounds: S1 normal heart sound present, S2 normal heart sound present and no murmurs Neuro General: patient oriented x3 Office Procedures Cerumen Removal From which ear canal was the cerumen removed: right Removal: irrigation Notes: patient tolerated procedure well, no complications and ear canal clear [id number] Irrigation/Lavage Assessment and Plan Assessment & Plan (1) Cerumen impaction: Code(s): H61.20 - Impacted cerumen, unspecified ear Plan: explained to pt he may feel like his right ear canal is still blocked for a few hrs. pt tolerated procedure well. Plan The patient agreed to the use of a bio medical technician for this encounter. Scribed for AYSHA Jolly by jia Duran scribe, on 05/23/2023 at 08:50 EST. Coding Level of Care Code Est Pt Level 3 (83314) Diagnoses Cerumen impaction H61.20 CPT Codes Office Procedure - CPT: 80127-Mln Irrigation/Lavage ([id number])
[2023-05-23 08:28] VITALS: BP 140/76; PULSE 85; O2SAT 98; BMI 18.7
== END 2023-05-23 09:49 | disposition home or self-care (01) ==
PROVIDERS: PCP Nurse Practitioner Family; Visit Provider Nurse Practitioner Family
DX: H61.21 Impacted cerumen, right ear (principal)
CPT/HCPCS: 69209; 99213

== ENCOUNTER 2023-06-07 07:55 | Outpatient (REF) | payer SELFPAY ==
--- NOTE | 2023-06-07 08:49 | MHC.AU.HA1 ---
Hearing Aid Evaluation Date of Visit: 06/07/23 Historical Information: Description of Hearing: Right Ear: Moderate sloping to profound (6 kHz) rising to severe (8 kHz) sensorineural hearing loss; Left Ear: Mild sloping to severe sensorineural hearing loss Summary: Dale was scheduled for a Hearing Aid Consultation following cerumen removal. However, his current Medicaid insurance plan, Senior Buy-In, does not have a hearing aid benefit. Dale inquired about financial assistance through [facility]. Explained he would need to be approved through [facility] prior to proceeding with the consultation. Dale wants to determine if he is eligible through [facility] first. Advised that hearing test is valid for six months. Dale will call pending outcome of [facility] application. Plan of Care: Patient is not interested in pursuing new amplification at this time. Primary Diagnosis: H90.3 Bilateral Sensorineural Hearing Loss Signature: Provider: Juan Francisco Cochran, CCC-A
== END 2023-06-07 07:56 | disposition home or self-care (01) ==
LOC: HO.HAP 07:55
PROVIDERS: PCP Nurse Practitioner Family; Visit Provider Nurse Practitioner Family
DX: Z13.89 Encounter for screening for other disorder (principal)

== ENCOUNTER 2023-07-11 08:33 | Outpatient (AMB) | payer MEDICARE, MEDICAID, SELFPAY ==
--- NOTE | 2023-07-11 08:36 | A.OFFVIS_ITS ---
Intake Intake Visit Reasons: 6m/PVR(Confirmed) Intake Note: Patient is Present for Follow Up Urology Medication: Bethanechol, Finasteride, Methenamine Antibiotic Allergies: None Blood Thinners:None PVR: 87 Allergies No Known Allergies [No Known Allergies*] Allergy (Verified 07/11/23 08:43) Medication List - Last Reconciled 07/11/23 by Clint Wong MD ascorbic acid (vitamin C) 1 g PO DAILY 90 days bethanechol chloride 50 mg PO BID 90 days lisinopril 10 mg PO DAILY 90 days meloxicam 7.5 mg PO DAILY PRN 30 days methenamine hippurate 1 g PO DAILY 90 days rosuvastatin (Crestor) 10 mg PO DAILY 90 days HPI HPI Comments History of Present Illness Details Dale is a pleasant male. He is a patient of Dr. Aesncio. he seen for the following urologic conditions - neurogenic bladder PVR down to 90 cc. Last PVR 360 On bethanechol with vitamin-C and methenamine Would continue with six-month PVR Lower Urinary Tract Symptoms: Prior treatments include 09/09 office laser procedure 04/12 laser anterior tissue - post procedure retention and hematuria, recurring UTI. - 08/11 suppression antibiotics 3 months Keflex Prostate Symptom Score Moderate (9-19), Bother 3. Symptoms include weak stream, nocturia (>2), and are improving. Results from testing include cystoscopy Trilobar hypertrophy anterior tissue renal/bladder us Yes date 01/03/2017 PVR 122 prostate size 95 Prior Prostate Score severe. PSA 12/09 3.65, 01/10 4.9, 08/11 1.8. Prostate volume 50+gm. Testing at next visit [facility] include P[facility] Medical History Smoker Radiculitis, cervical Smoker Surgical History History of transurethral resection of prostate Webbed fingers of both hands Family History Father Chewing tobacco use Mother Skin cancer Smoker Brother No problems noted. Sister No problems noted. Daughter No problems noted. Social History Housing: Apartment Alcohol intake: former Patient Tobacco Use Status: Current everyday Tobacco user Cigarette Packs Per Day: 1 Cigarettes Per Day: 15 e-Cigarette/Vaping Use: Never Used Second Hand Smoke Exposure: No service: No Current occupational status: retired Cognitive needs: No Hearing needs: No Vision needs: No Review of Systems Const Denies chills and Denies fever(s) Card Reports no additional complaints and Denies syncope Resp Denies cough GI Denies abdominal pain and Denies heartburn Reports as per HPI and Denies change in libido Neuro Denies syncope Psych Denies change in libido Endo Denies change in libido Physical Exam Const General: cooperative, healthy appearing, comfortable and no acute distress Orientation/consciousness: patient oriented x3 HEENT Face and sinus: Yes normal facial exam Mouth: moist mucous membranes Neck Neck: Yes normal visual inspection, Yes full ROM and Yes trachea midline Chest Chest palpation & inspection: normal inspection of the chest Resp Effort & Inspection: normal respiratory effort, able to speak in complete sentences and no respiratory distress GI Inspection: Yes normal to inspection Back/Spine/Pelvis Cervical Spine: normal cervical lordosis Thoracic/Lumbar Spine: thoracic and lumbar spine normal to inspection Skin General skin exam: no rashes or lesions noted Neuro General: patient oriented x3, gait normal, tone normal and moves all extremities Extrem General: Yes normal to inspection and Yes capillary refill normal Office Procedures Post Void Residual Post Residual Void Post Void Residual (PVR): 87 [id number] Void Residual by ultrasound Assessment & Plan Assessment & Plan (1) Hypotonic neurogenic bladder: Code(s): N31.9 - Neuromuscular dysfunction of bladder, unspecified (2) BPH loc w urin obs/LUTS: Code(s): N40.1 - Benign prostatic hyperplasia with lower urinary tract symptoms Plan Six-month follow-up PVR Orders: Orders AMB Post Void Residual by ultrasound Today N31.9 - Neuromuscular dysfunction of bladder, unspecified Medications: Refilled ascorbic acid (vitamin C) 1 g PO DAILY 90 days 90 tabs 1RF N39.0 - Urinary tract infection, site not specified bethanechol chloride 50 mg PO BID 90 days 180 tabs 1RF N40.1 - Benign prostatic hyperplasia with lower urinary tract symptoms, R39.14 - Feeling of incomplete bladder emptying methenamine hippurate 1 g PO DAILY 90 days 90 tabs 1RF N39.0 - Urinary tract infection, site not specified Discontinued finasteride Discontinued Reason: Doctor's Order 5 mg PO DAILY 90 days 90 tabs 2RF Patient Instructions: Imaging studies, laboratory and physical exam results were discussed and reviewed in detail. No major barriers to patient understanding were identified. An opportunity to ask questions regarding the treatment plan was provided. All questions were answered. The patient expressed understanding and agreement with the above treatment plan. The patient is aware they should contact our office by phone for worsening of their current condition or the appearance of new urologic symptoms. Compliance is encouraged with any medications and followup testing that is ordered. It is a privilege to participate in the urologic care of your patient. If you have any questions or concerns regarding treatment for the above conditions, or other urologic issues, please do not hesitate to contact me. The office telephone contact is [phone]. This note is constructed using voice recognition software. While every effort has been made to ensure accuracy mechanical assembly errors may have been included. Yours sincerely, Dr Clint Wong MD, [facility] - Urology Providers of Expert, Compassionate Care for the Genitourinary System Coding Level of Care Code Est Pt Level 3 (66015) Diagnoses Hypotonic neurogenic bladder N31.9 BPH loc w urin obs/LUTS N40.1 CPT Codes Post Residual Void - PVR CPT Code: 50750-Ppxr Void Residual by ultrasound ([id number])
== END 2023-07-11 08:50 | disposition home or self-care (01) ==
PROVIDERS: PCP Nurse Practitioner Family; Visit Provider Urology
DX: N31.9 Neuromuscular dysfunction of bladder, unspecified (principal); N40.1 Benign prostatic hyperplasia with lower urinary tract symptoms
CPT/HCPCS: 99213

== ENCOUNTER → 2023-07-11 08:33 | Outpatient (BNVA) | payer MEDICARE, MEDICAID, SELFPAY | PROVIDERS: PCP Nurse Practitioner Family; Visit Provider Urology | DX: N40.1 Benign prostatic hyperplasia with lower urinary tract symptoms (principal); N31.9 Neuromuscular dysfunction of bladder, unspecified | CPT/HCPCS: 51798; 99212 ==

== ENCOUNTER 2023-10-09 09:41 | Outpatient (AMB) | payer MEDICARE, MEDICAID, SELFPAY ==
--- NOTE | 2023-10-09 10:03 | A.OFFPC_ITS ---
Vital Signs 10/09/23 10:05 Height 5 ft 10 in Weight 126 lb BMI 18.1 BP 122/70 Blood Pressure Location Rt brachial Position Sitting Pulse 67 Pulse Source Pulse Oximeter Pulse Oximetry (%) 97 Oxygen Delivery Method Room Air Intake Visit Reasons: 6 Month follow up Intake Note: Patient here to discuss two moles on chest that appeared out of nowhere and would like to see Derm as their is a family hx of melanoma Allergies No Known Allergies [No Known Allergies*] Allergy (Verified 10/09/23 10:07) Medication List - Last Reconciled 10/09/23 by AYSHA Agrawal ascorbic acid (vitamin C) 1 g PO DAILY 90 days bethanechol chloride 50 mg PO BID 90 days lisinopril 10 mg PO DAILY 90 days meloxicam 7.5 mg PO DAILY PRN 30 days methenamine hippurate 1 g PO DAILY 90 days rosuvastatin (Crestor) 10 mg PO DAILY 90 days Tobacco use date assessed: 05/23/23 Fall risk assessment: No Falls in past year Last assessed Fall Risk: 10/09/23 Dental Screening Dental Screen Date: 05/23/23 HPI 6 Month follow up HPI Details Dyslipidemia: Pt is taking rosuvastatin 10mg. Will order labs. Denies chest pain, shortness of breath, and dizziness. Pt reports new singular lesions to his upper torso and pubic region. He is exposed to the sun often. Will refer to derm. [facility] Medical History Smoker Radiculitis, cervical Smoker Surgical History History of transurethral resection of prostate Webbed fingers of both hands Family History Father Chewing tobacco use Mother Skin cancer Smoker Brother No problems noted. Sister No problems noted. Daughter No problems noted. Social History Housing: Apartment Alcohol intake: former Patient Tobacco Use Status: Current everyday Tobacco user Cigarette Packs Per Day: 1 Cigarettes Per Day: 15 e-Cigarette/Vaping Use: Never Used Second Hand Smoke Exposure: No service: No Current occupational status: retired Cognitive needs: No Hearing needs: No Vision needs: No Questionnaire PHQ-9 Over the last 2 weeks, how often have you been bothered by any of the following problems? 1. Little interest or pleasure in doing things: not at all 2. Feeling down, depressed, or hopeless: not at all 3. Trouble falling or staying asleep, or sleeping too much: not at all 4. Feeling tired or having little energy: not at all 5. Poor appetite or overeating: not at all 6. Feeling bad about yourself - or that you are a failure or have let yourself or your family down: not at all 7. Trouble concentrating on things, such as reading the newspaper or watching television: not at all 8. Moving or speaking so slowly that other people could have noticed. Or the opposite - being so fidgety or restless that you have been moving around a lot more than usual: not at all 9. Thoughts that you would be better off or of hurting yourself in some way: not at all Total score: 0 Depression Screening Interpretation: Negative Depression Screening Done: Yes 37272 - PHQ-9 Billing: Yes Source: Developed by Drs. Aashish Lawton, Apoolnia López, Wilfrido Concepcion and colleagues, with an educational jefferson from [employer]. Thrive Questionnaire Date Thrive assessed: 10/09/23 I am a: Patient What is your living situation today?: I have a steady place to live Within the past 12 months, did the food you bought not last and you didn't have the money to get more?: I choose not to answer this question Within the past 12 months, did you worry whether your food would run out before you got money to buy more?: I choose not to answer this question Do you have trouble paying for medicines?: No Do you have trouble getting transportation to medical appointments?: No Do you have trouble paying your heating and electricity bill?: No Do you have trouble taking care of your child, family member or friend?: No Do you have trouble with day-to-day activities such as bathing, preparing meals, shopping, managing finances, etc.?: No Are you currently unemployed and looking for a job?: No Are you interested in more education?: No Please select the resources that you would like help with: Housing/Correction Currently or been in a relationship where the following occur: No concerns reported and I choose not to answer THRIVE Score: 0 AUDIT C Alcohol Use Questionnaire (AUDIT-C) 1. How often do you have a drink containing alcohol?: Never Total Score: 0 KARLIE-7 AMB Questionnaire KARLIE-7 Date KARLIE - 7 assessed: 10/09/23 Feeling nervous, anxious, or on edge: 0 = Not at all Not being able to stop or control worryin = Not at all Worrying too much about different things: 0 = Not at all Trouble relaxin = Not at all Being so restless that it is hard to sit still: 0 = Not at all Becoming easily annoyed or irritable: 0 = Not at all Feeling afraid as if something awful might happen: 0 = Not at all Total KARLIE-7 score (0-4 normal; 5-9 mild; 10-14 moderate; 15-21 severe): 0 Source: Developed by Drs. Aashish Lawton, Apolonia López, Wilfrido Concepcion and colleagues, with an educational jefferson from [employer]. KARLIE-7 Assessment Billing KARLIE-7 Assessment Tool: KARLIE-7 Assessment 23127 Review of Systems Const Reports as per HPI Physical exam (Primary Care) Vital Signs: Last Vital Signs Pulse 67 10/09/23 10:05 BP 122/70 10/09/23 10:05 Pulse Ox 97 10/09/23 10:05 Oxygen Delivery Method Room Air 10/09/23 10:05 BMI result Body Mass Index 18.1 Tobacco/Smoking Status: Tobacco use Status Tobacco use date assessed 05/23/23 10/09/23 10:03 Patient Tobacco Use Status Current everyday Tobacco 10/09/23 10:03 e-Cigarette/Vaping Use Never Used 10/09/23 10:03 PHQ-9: PHQ-9 Score PHQ-9: Total score 0 10/09/23 10:15 Depression Screening Interpretation: Negative Thrive Assessment: Date of Thrive Assessment Date Thrive assessed 10/09/23 10/09/23 10:10 Currently or been in a relationship where the following occur: No concerns reported and I choose not to answer Const General: cooperative Orientation/consciousness: patient oriented x3 Resp Effort & Inspection: normal respiratory effort Auscultation: diminished lung sounds (scattered coarse wheezes) Cardio Rate: regular rate Rhythm: regular rhythm Heart sounds: S1 normal heart sound present, S2 normal heart sound present and no murmurs Skin Other: macular slightly raised dry appearing singular lesions to his upper torso and pubic region Neuro General: patient oriented x3 Psych Appearance: grossly normal Mental Status: mental status grossly normal Speech and movement: Normal speech and movement present Affect: normal affect Attitude: cooperative Thought process: Normal thought process present Thought content: Normal thought content present Insight: Good insight present (Psych) Judgement: Good judgement present (Psych) Assessment and Plan Assessment & Plan (1) Skin lesion: Code(s): L98.9 - Disorder of the skin and subcutaneous tissue, unspecified Plan: Referred to derm (2) Dyslipidemia: Code(s): E78.5 - Hyperlipidemia, unspecified Plan: Labs ordered Plan The patient agreed to the use of a senior medical billing specialist for this encounter. Scribed for AYSHA Jolly by Minnie Park senior medical billing specialist, on 10/09/2023 at 10:15 EST. Orders: Orders Complete Blood Count Auto Diff Today E78.5 - Hyperlipidemia, unspecified Lipid Panel Today L98.9 - Disorder of the skin and subcutaneous tissue, unspecified [employer] Panel Fast Today L98.9 - Disorder of the skin and subcutaneous tissue, unspecified TSH reflex Free T4 Today L98.9 - Disorder of the skin and subcutaneous tissue, unspecified UA CC w/rflx Micro + Cult Today L98.9 - Disorder of the skin and subcutaneous tissue, unspecified Referrals Dermatology Referral L98.9 - Disorder of the skin and subcutaneous tissue, unspecified Coding Level of Care Code Est Pt Level 3 (36229) Diagnoses Skin lesion L98.9 Dyslipidemia E78.5 Additional Codes KARLIE-7 Assessment Billing - KARLIE-7 Assessment Tool: KARLIE-7 Assessment 14601 ([id number])
[2023-10-09 10:05] VITALS: BP 122/70; PULSE 67; O2SAT 97; BMI 18.1
== END 2023-10-09 10:28 | disposition home or self-care (01) ==
PROVIDERS: PCP Nurse Practitioner Family; Visit Provider Nurse Practitioner Family
DX: L98.9 Disorder of the skin and subcutaneous tissue, unspecified (principal); E78.5 Hyperlipidemia, unspecified
CPT/HCPCS: 99213

== ENCOUNTER 2024-01-10 06:19 | Outpatient (REF) | payer MEDICARE, MEDICAID, SELFPAY ==
[2024-01-10 10:46] LABS: Appearance Urine Clear; Color Urine Yellow; Glucose Urine UA Negative (Negative); Leukocyte Esterase Urine Negative (Negative); Nitrite Urine Negative (Negative); PH 6.5 (5.0-9.0); UMIC TRIGGER UACC YES; Urine Blood Negative (Negative); Urine Ketones Negative (Negative); Urine Protein 30 (1+) mg/dL (Neg-Trace)
[2024-01-10 10:52] LABS: Bacteria Urine None Seen (None Seen); Hyaline Casts Urine 0-2 /LPF (0-2); RBC Urine 0-2 /HPF (0-2); UACC Culture Trigger YES
[2024-01-10 10:54] LABS: MANUAL DIFF FLAG NO
[2024-01-10 11:01] LABS: Basophils Absolute Auto 0.1 X10*3/uL (0.0-0.2); Basophils Percent Auto 0.8 % (0-2); Eosinophils Absolute Auto 0.1 X10*3/uL (0.0-0.4); Eosinophils Percent Auto 1.7 % (0-4); Hemoglobin 13.7 g/dl (14.0-18.0); Imm Gran Abs Auto 0.01 X10*3/uL (0.00-0.03); Imm Gran Pct Auto 0.2 % (0.0-0.4); Lymphocytes Absolute Auto 1.3 X10*3/uL (1.2-4.9); Mean Corpuscular HGB Conc 31.9 g/dl (31.0-36.0); Mean Corpuscular Hemoglobin 30.7 pg (27.0-33.0); Mean Corpuscular Volume 96.4 fL (80.0-98.0); Mean Platelet Volume 10.6 fL (9.4-12.4); Monocytes Absolute Auto 0.5 X10*3/uL (0.1-1.2); Monocytes Percent Auto 7.8 % (2-11); Neutrophils Absolute Auto 4.4 x10*3/uL (2.0-8.3); Neutrophils Percent Auto 68.5 % (45-73); Platelet Count 287 X10*3/uL (160-400); Red Blood Count 4.46 X10*6/uL (4.60-5.80); Red Cell Distribution Width 14.3 % (11.0-16.0); White Blood Count 6.4 X10*3/uL (4.8-10.8)
[2024-01-10 12:16] LABS: Alanine Aminotransferase 13 U/L (0-40); Albumin Level 4.1 g/dL (3.5-5.0); Alkaline Phosphatase 78 U/L (39-117); Anion Gap 12 (12-20); Aspartate Amino Transferase 14 U/L (5-37); Bilirubin Total 0.5 mg/dL (0.0-1.0); Blood Urea Nitrogen 21 mg/dL (9-16); Carbon Dioxide 23 mmol/L (22-29); Chloride 114 mmol/L (96-108); Cholesterol 121 mg/dL (<200); Estimated Glomerular Filt Rate > 60; Glucose Fasting 97 mg/dL (60-99); HDL Cholesterol 39 mg/dL (>40); LDL Cholesterol Calculated 62 mg/dL (<100); Potassium 4.4 mmol/L (3.3-5.1); Sodium 145 mmol/L (135-145); Total Protein 6.9 g/dL (6.5-8.0); Triglycerides 100 mg/dL (<150)
[2024-01-10 12:20] LABS: TSH reflex Free T4 2.13 uIU/mL (0.32-4.0)
== END 2024-01-10 06:20 | disposition home or self-care (01) ==
LOC: HO.HMGCLDS 06:19
PROVIDERS: PCP Nurse Practitioner Family; Visit Provider Nurse Practitioner Family
DX: E78.5 Hyperlipidemia, unspecified (principal); L98.9 Disorder of the skin and subcutaneous tissue, unspecified; R80.9 Proteinuria, unspecified
CPT/HCPCS: 36415; 80053; 80061; 81001; 84443; 85025; 87086

== ENCOUNTER 2024-01-27 10:02 | Outpatient (REF) | payer MEDICARE, MEDICAID, SELFPAY ==
[2024-01-27 13:35] LABS: MANUAL DIFF FLAG NO
[2024-01-27 13:54] LABS: Basophils Percent Auto 0.5 % (0-2); Eosinophils Absolute Auto 0.1 X10*3/uL (0.0-0.4); Eosinophils Percent Auto 0.8 % (0-4); Hematocrit 41.3 % (42.0-52.0); Hemoglobin 13.6 g/dl (14.0-18.0); Imm Gran Abs Auto 0.02 X10*3/uL (0.00-0.03); Imm Gran Pct Auto 0.2 % (0.0-0.4); Immature Retic Fraction 8.9 % (2.3-13.4); Lymphocytes Absolute Auto 1.4 X10*3/uL (1.2-4.9); Lymphocytes Percent Auto 16.9 % (20-40); Mean Corpuscular HGB Conc 32.9 g/dl (31.0-36.0); Mean Corpuscular Hemoglobin 31.4 pg (27.0-33.0); Mean Corpuscular Volume 95.4 fL (80.0-98.0); Mean Platelet Volume 10.7 fL (9.4-12.4); Monocytes Absolute Auto 0.6 X10*3/uL (0.1-1.2); Monocytes Percent Auto 6.6 % (2-11); Neutrophils Absolute Auto 6.4 x10*3/uL (2.0-8.3); Platelet Count 271 X10*3/uL (160-400); Red Blood Count 4.33 X10*6/uL (4.60-5.80); Red Cell Distribution Width 14.3 % (11.0-16.0); Retic HGB Equivalent 35.1 pg (30.0-35.0); Reticulocyte Percent 1.3 % (0.5-1.8); Reticulocytes Absolute 0.056 X10*6/uL (0.026-0.095); White Blood Count 8.5 X10*3/uL (4.8-10.8)
[2024-01-27 14:15] LABS: Appearance Urine Clear; Color Urine Yellow; Glucose Urine UA Negative (Negative); Leukocyte Esterase Urine Trace (Negative); Nitrite Urine Negative (Negative); UMIC TRIGGER UACC YES; Urine Blood Negative (Negative); Urine Ketones Negative (Negative); Urine Protein Trace mg/dL (Neg-Trace)
[2024-01-27 14:24] LABS: Bacteria Urine None Seen (None Seen); Hyaline Casts Urine 0-2 /LPF (0-2); RBC Urine 0-2 /HPF (0-2); UACC Culture Trigger YES
[2024-01-27 14:33] LABS: Iron 96 mcg/dL (45-160); Percent Iron Saturation 37 % (15-50); Total Iron Binding Capacity 263 mcg/dL (228-428); Unsaturated Iron Binding 167 ug/dL
[2024-01-27 14:35] LABS: Ferritin 88 ng/mL (20-250)
[2024-01-27 14:48] LABS: Folate 9.9 ng/mL (> or = 4.0); Vitamin B12 178 pg/mL (200-900)
== END 2024-01-27 10:03 | disposition home or self-care (01) ==
LOC: HO.HMGCLDS 10:02
PROVIDERS: PCP Nurse Practitioner Family; Visit Provider Nurse Practitioner Family
DX: D64.9 Anemia, unspecified (principal); R80.9 Proteinuria, unspecified; L98.9 Disorder of the skin and subcutaneous tissue, unspecified
CPT/HCPCS: 36415; 81001; 81003; 82607; 82728; 82746; 83540; 85025; 85045; 87086

== ENCOUNTER 2024-02-21 10:36 | Outpatient (REF) | payer MEDICARE, MEDICAID, SELFPAY ==
[2024-02-21 13:45] LABS: Appearance Urine Clear; Color Urine Yellow; Glucose Urine UA Negative (Negative); Leukocyte Esterase Urine Small (1+) (Negative); Nitrite Urine Negative (Negative); PH 5.5 (5.0-9.0); UMIC TRIGGER UACC YES; Urine Blood Negative (Negative); Urine Ketones Negative (Negative); Urine Protein Trace mg/dL (Neg-Trace)
[2024-02-21 13:53] LABS: Bacteria Urine None Seen (None Seen); Hyaline Casts Urine 0-2 /LPF (0-2); RBC Urine 0-2 /HPF (0-2); UACC Culture Trigger YES
[2024-02-21 14:34] LABS: Folate 7.6 ng/mL (> or = 4.0); Vitamin B12 171 pg/mL (200-900)
[2024-02-25 13:29] LABS: Parietal Cell Antibody <=20.0 Unit (<=20.0)
[2024-02-25 15:39] LABS: Intrinsic Factor Antibodies Negative (Negative)
== END 2024-02-21 10:37 | disposition home or self-care (01) ==
LOC: HO.HMGCLDS 10:36
PROVIDERS: PCP Nurse Practitioner Family; Visit Provider Nurse Practitioner Family
DX: D64.9 Anemia, unspecified (principal); R80.9 Proteinuria, unspecified; E53.8 Deficiency of other specified B group vitamins
CPT/HCPCS: 36415; 81001; 82607; 82746; 83516; 86340; 87086

== ENCOUNTER 2024-02-26 08:03 | Outpatient (AMB) | payer MEDICARE, SELFPAY ==
--- NOTE | 2024-02-26 08:28 | A.OFFVIS_ITS ---
Intake Visit Reasons: 6M PVR Intake Note: Patient is present for 6m/PVR Urology Medication:vitamin c,vitamin b12,methanamine hippurfate,bethanechol chloride Antibiotic Allergy:none Blood Thinner:none Last PVR:87ml's Todays PVR:0ml's Construction Representative Required: No Allergies No Known Allergies [No Known Allergies*] Allergy (Verified 02/26/24 08:31) Medication List - Last Reconciled 02/26/24 by Clint Wong MD ascorbic acid (vitamin C) 1 g PO DAILY 90 days bethanechol chloride 50 mg PO BID 90 days lisinopril 10 mg PO DAILY 90 days mecobalamin (vitamin B12) 1,000 mcg PO DAILY meloxicam 7.5 mg PO DAILY PRN 30 days methenamine hippurate 1 g PO DAILY 90 days rosuvastatin 10 mg PO DAILY 90 days HPI Comments Details: Dale is a pleasant male. He is a patient of Dr. Asencio. he seen for the following urologic conditions - neurogenic bladder PVR today 0 cc Prior PVR 360 On bethanechol with vitamin-C and methenamine Would continue with six-month PVR Tries to avoid coffee Lower Urinary Tract Symptoms: Prior treatments include 09/09 office laser procedure 04/12 laser anterior tissue - post procedure retention and hematuria, recurring UTI. - 08/11 suppression antibiotics 3 months Keflex Prostate Symptom Score Moderate (9-19), Bother 3. Symptoms include weak stream, nocturia (>2), and are improving. Results from testing include cystoscopy Trilobar hypertrophy anterior tissue renal/bladder us Yes date 01/03/2017 PVR 122 prostate size 95 Prior Prostate Score severe. PSA 12/09 3.65, 01/10 4.9, 08/11 1.8. Prostate volume 50+gm. Testing at next visit will include PVR PFS Medical History Smoker Radiculitis, cervical Smoker Surgical History History of transurethral resection of prostate Webbed fingers of both hands Family History Father Chewing tobacco use Mother Skin cancer Smoker Brother No problems noted. Sister No problems noted. Daughter No problems noted. Social History Housing: Apartment Alcohol intake: former Patient Tobacco Use Status: Current everyday Tobacco user Cigarette Packs Per Day: 1 Cigarettes Per Day: 15 e-Cigarette/Vaping Use: Never Used Second Hand Smoke Exposure: No service: No Current occupational status: retired Cognitive needs: No Hearing needs: No Vision needs: No Review of Systems Const Denies chills and Denies fever(s) Card Reports no additional complaints and Denies syncope Resp Denies cough GI Denies abdominal pain and Denies heartburn Reports as per HPI and Denies change in libido Neuro Denies syncope Psych Denies change in libido Endo Denies change in libido Physical Exam Const General: cooperative, healthy appearing, comfortable and no acute distress Orientation/consciousness: patient oriented x3 HEENT Face and sinus: Yes normal facial exam Mouth: moist mucous membranes Neck Neck: Yes normal visual inspection, Yes full ROM and Yes trachea midline Chest Chest palpation & inspection: normal inspection of the chest Resp Effort & Inspection: normal respiratory effort, able to speak in complete sentences and no respiratory distress GI Inspection: Yes normal to inspection Back/Spine/Pelvis Cervical Spine: normal cervical lordosis Thoracic/Lumbar Spine: thoracic and lumbar spine normal to inspection Skin General skin exam: no rashes or lesions noted Neuro General: patient oriented x3, gait normal, tone normal and moves all extremities Extrem General: Yes normal to inspection and Yes capillary refill normal Office Procedures Post Void Residual Post Residual Void Post Void Residual (PVR): 0 [id number]-[id number] Void Residual by ultrasound Results AMB Urinalysis, Automated UA Leukoctes 0 Ten/uL Last Edit by SALVADOR Haskins on 02/26/24 08:44 UA Nitrite Negative Last Edit by SALVADOR Haskins on 02/26/24 08:44 UA Urobilinogen 0.2 mg/dL Last Edit by SALVADOR Haskins on 02/26/24 08:4 4 UA Protein 15 mg/dL Last Edit by SALVADOR Haskins on 02/26/24 08:44 UA pH 6.0 Last Edit by SALVADOR Haskins on 02/26/24 08:44 UA Blood 0 Eris/uL Last Edit by SALVADOR Haskins on 02/26/24 08:44 UA Specific [place] 1.020 Last Edit by Martha Ford CCMA on 02/26/24 08: 44 UA Ketone Negative Last Edit by SALVADOR Haskins on 02/26/24 08:44 UA Bilirubin 0 mg/dL Last Edit by SALVADOR Haskins on 02/26/24 08:44 UA Glucose 0 mg/dL Last Edit by SALVADOR Haskins on 02/26/24 08:44 Results Reviewed Results Reviewed: Laboratory Last Values Urine pH (Auto) 6.0 02/26/24 08:44 Specific [place] (Auto) 1.020 02/26/24 08:44 Urine Protein (Auto) 15 mg/dL 02/26/24 08:44 Glucose (UA)(Auto) 0 mg/dL 02/26/24 08:44 Urine Ketones (Auto) Negative 02/26/24 08:44 Urine Blood (Auto) 0 Eris/uL 02/26/24 08:44 Urine Nitrite (Auto) Negative 02/26/24 08:44 Urine Bilirubin (Auto) 0 mg/dL 02/26/24 08:44 Urine Urobilinogen (Auto) 0.2 mg/dL 02/26/24 08:44 Leukocyte Esterase (Auto) 0 Ten/uL 02/26/24 08:44 Assessment & Plan Assessment & Plan (1) BPH loc w urin obs/LUTS: Code(s): N40.1 - Benign prostatic hyperplasia with lower urinary tract symptoms Category: Medical (2) Urinary urgency: Code(s): R39.15 - Urgency of urination Category: Medical (3) Recurrent UTI (urinary tract infection): Comment: Failed suppression for 3 months September 2019 Code(s): N39.0 - Urinary tract infection, site not specified Category: Medical Plan Six-month follow-up Orders: Orders AMB Urinalysis Automated Today Z13.9 - Encounter for screening, unspecified Prostate Specific Antigen 6 Months N40.1 - Benign prostatic hyperplasia with lower urinary tract symptoms, R39.14 - Feeling of incomplete bladder emptying Patient Instructions: Imaging studies, laboratory and physical exam results were discussed and reviewed in detail. No major barriers to patient understanding were identified. An opportunity to ask questions regarding the treatment plan was provided. All questions were answered. The patient expressed understanding and agreement with the above treatment plan. The patient is aware they should contact our office by phone for worsening of their current condition or the appearance of new urologic symptoms. Compliance is encouraged with any medications and followup testing that is ordered. It is a privilege to participate in the urologic care of your patient. If you have any questions or concerns regarding treatment for the above conditions, or other urologic issues, please do not hesitate to contact me. The office telephone contact is [phone]. This note is constructed using voice recognition software. While every effort has been made to ensure accuracy house repairer errors may have been included. Yours sincerely, Dr Clint Wong MD, [facility] - Urology Providers of Expert, Compassionate Care for the Genitourinary System Coding Level of Care Code Est Pt Level 3 (47730) Diagnoses BPH loc w urin obs/LUTS N40.1 Urinary urgency R39.15 Recurrent UTI (urinary tract infection) N39.0 CPT Codes Post Residual Void - PVR CPT Code: 70723-Jczh Void Residual by ultrasound ([id number])
== END 2024-02-26 08:53 | disposition home or self-care (01) ==
PROVIDERS: PCP Nurse Practitioner Family; Visit Provider Urology
DX: N40.1 Benign prostatic hyperplasia with lower urinary tract symptoms (principal); R39.15 Urgency of urination; N39.0 Urinary tract infection, site not specified; Z13.9 Encounter for screening, unspecified
CPT/HCPCS: 99213

== ENCOUNTER → 2024-02-26 08:03 | Outpatient (BNVA) | payer MEDICARE, SELFPAY | PROVIDERS: PCP Nurse Practitioner Family; Visit Provider Urology | DX: N40.1 Benign prostatic hyperplasia with lower urinary tract symptoms (principal); N13.8 Other obstructive and reflux uropathy; N31.9 Neuromuscular dysfunction of bladder, unspecified; R39.15 Urgency of urination; N39.0 Urinary tract infection, site not specified | CPT/HCPCS: 51798; 81003; 99212 ==

== ENCOUNTER 2024-04-10 09:56 | Outpatient (REF) | payer MEDICARE, SELFPAY ==
[2024-04-10 13:03] LABS: MANUAL DIFF FLAG NO
[2024-04-10 13:06] LABS: Basophils Percent Auto 0.4 % (0-2); Eosinophils Percent Auto 0.4 % (0-4); Hematocrit 39.6 % (42.0-52.0); Hemoglobin 13.1 g/dl (14.0-18.0); Imm Gran Abs Auto 0.03 X10*3/uL (0.00-0.03); Imm Gran Pct Auto 0.3 % (0.0-0.4); Lymphocytes Absolute Auto 1.3 X10*3/uL (1.2-4.9); Lymphocytes Percent Auto 14.3 % (20-40); Mean Corpuscular HGB Conc 33.1 g/dl (31.0-36.0); Mean Corpuscular Hemoglobin 30.8 pg (27.0-33.0); Mean Corpuscular Volume 93.2 fL (80.0-98.0); Mean Platelet Volume 10.5 fL (9.4-12.4); Monocytes Absolute Auto 0.7 X10*3/uL (0.1-1.2); Monocytes Percent Auto 7.1 % (2-11); Neutrophils Absolute Auto 7.2 x10*3/uL (2.0-8.3); Neutrophils Percent Auto 77.5 % (45-73); Platelet Count 276 X10*3/uL (160-400); Red Blood Count 4.25 X10*6/uL (4.60-5.80); Red Cell Distribution Width 14.7 % (11.0-16.0); White Blood Count 9.3 X10*3/uL (4.8-10.8)
[2024-04-10 13:18] LABS: Alanine Aminotransferase 18 U/L (0-40); Albumin Level 4.1 g/dL (3.5-5.0); Alkaline Phosphatase 83 U/L (39-117); Anion Gap 10 (12-20); Aspartate Amino Transferase 18 U/L (5-37); Bilirubin Total 0.4 mg/dL (0.0-1.0); Blood Urea Nitrogen 18 mg/dL (9-16); Calcium 8.6 mg/dL (8.4-10.2); Carbon Dioxide 24 mmol/L (22-29); Chloride 111 mmol/L (96-108); Estimated Glomerular Filt Rate > 60; Glucose Random 100 mg/dL (60-115); Potassium 4.3 mmol/L (3.3-5.1); Sodium 141 mmol/L (135-145); Total Protein 7.1 g/dL (6.5-8.0)
[2024-04-10 13:51] LABS: Folate 7.9 ng/mL (> or = 4.0); Vitamin B12 318 pg/mL (200-900)
== END 2024-04-10 09:57 | disposition home or self-care (01) ==
LOC: HO.HMGCLDS 09:56
PROVIDERS: PCP Nurse Practitioner Family; Visit Provider Nurse Practitioner Family
DX: E53.8 Deficiency of other specified B group vitamins (principal)
CPT/HCPCS: 36415; 80053; 82607; 82746; 85025

== ENCOUNTER 2024-04-14 13:37 | Outpatient (AMB) | payer MEDICARE, MEDICAID, SELFPAY ==
--- NOTE | 2024-04-14 13:38 | MHC.PC.OV ---
Intake Visit Reasons: [facility] G0439 Allergies No Known Allergies [No Known Allergies*] Allergy (Verified 02/26/24 08:31) Tobacco use date assessed: 05/23/23 Dental Screening Dental Screen Date: 05/23/23 [facility] Medical History Smoker Radiculitis, cervical Smoker Surgical History History of transurethral resection of prostate Webbed fingers of both hands Family History Father Chewing tobacco use Mother Skin cancer Smoker Brother No problems noted. Sister No problems noted. Daughter No problems noted. Social History Housing: Apartment Alcohol intake: former Patient Tobacco Use Status: Current everyday Tobacco user Cigarette Packs Per Day: 1 Cigarettes Per Day: 15 e-Cigarette/Vaping Use: Never Used Second Hand Smoke Exposure: No service: No Current occupational status: retired Cognitive needs: No Hearing needs: No Vision needs: No Questionnaire PHQ-9 Over the last 2 weeks, how often have you been bothered by any of the following problems? 1. Little interest or pleasure in doing things: not at all 2. Feeling down, depressed, or hopeless: not at all 3. Trouble falling or staying asleep, or sleeping too much: not at all 4. Feeling tired or having little energy: not at all 5. Poor appetite or overeating: not at all 6. Feeling bad about yourself - or that you are a failure or have let yourself or your family down: not at all 7. Trouble concentrating on things, such as reading the newspaper or watching television: not at all 8. Moving or speaking so slowly that other people could have noticed. Or the opposite - being so fidgety or restless that you have been moving around a lot more than usual: not at all 9. Thoughts that you would be better off or of hurting yourself in some way: not at all Total score: 0 Source: Developed by Drs. Aashish Lawton, Apolonia López, Wilfrido Concepcion and colleagues, with an educational jefferson from [employer]. Thrive Questionnaire Date Thrive assessed: 04/14/24 I am a: Patient What is your living situation today?: I have a steady place to live Within the past 12 months, did the food you bought not last and you didn't have the money to get more?: I choose not to answer this question Within the past 12 months, did you worry whether your food would run out before you got money to buy more?: I choose not to answer this question Do you have trouble paying for medicines?: No Do you have trouble getting transportation to medical appointments?: No Do you have trouble paying your heating and electricity bill?: No Do you have trouble taking care of your child, family member or friend?: No Do you have trouble with day-to-day activities such as bathing, preparing meals, shopping, managing finances, etc.?: No Are you currently unemployed and looking for a job?: No Are you interested in more education?: No Please select the resources that you would like help with: None THRIVE Score: 0 AUDIT C Alcohol Use Questionnaire (AUDIT-C) 2. How many drinks containing alcohol do you have on a typical day when you are drinking?: 1 or 2 3. How often do you have six or more drinks on one occasion?: Never Total Score: 0 KARLIE-7 AMB Questionnaire KARLIE-7 Date KARLIE - 7 assessed: 10/09/23 Source: Developed by Drs. Aashish Lawton, Apolonia López, Wilfrido Concepcion and colleagues, with an educational jefferson from [employer]. Physical exam (Primary Care) Tobacco/Smoking Status: Tobacco use Status Tobacco use date assessed 05/23/23 10/09/23 10:03 Patient Tobacco Use Status Current everyday Tobacco 10/09/23 10:03 e-Cigarette/Vaping Use Never Used 10/09/23 10:03 Thrive Assessment: Date of Thrive Assessment Date Thrive assessed 04/14/24 04/14/24 13:38 Coding
[2024-04-14 13:43] VITALS: BP 138/76; PULSE 89; O2SAT 96; BMI 18.7
--- NOTE | 2024-04-14 13:43 | AM.OFFVISMDC ---
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 Accompanied by: Self / Same As Patient Allergies No Known Allergies [No Known Allergies*] Allergy (Verified 04/14/24 14:28) Medication List - Last Reconciled 04/14/24 by AYSHA Agrawal ascorbic acid (vitamin C) 1 g PO DAILY 90 days bethanechol chloride 50 mg PO BID 90 days lisinopril 10 mg PO DAILY 90 days mecobalamin (vitamin B12) 1,000 mcg PO DAILY meloxicam 7.5 mg PO DAILY PRN 30 days methenamine hippurate 1 g PO DAILY 90 days rosuvastatin 10 mg PO DAILY 90 days Do you need a note to return to daycare/school/sports/work: No HPI [facility] G0439 HPI Details here for AWV. ccc in scan pile, PPP in scan pile. Refuses colon screens and LDCTs HPI Comments History of Present Illness Details slight anemia, will get further labs. B12 stable currently [facility] Medical History Smoker Radiculitis, cervical Smoker Surgical History History of transurethral resection of prostate Webbed fingers of both hands Family History Father Chewing tobacco use Mother Skin cancer Smoker Brother No problems noted. Sister No problems noted. Daughter No problems noted. Social History Housing: Apartment Alcohol intake: former Patient Tobacco Use Status: Current everyday Tobacco user Cigarette Packs Per Day: 1 Cigarettes Per Day: 15 e-Cigarette/Vaping Use: Never Used Second Hand Smoke Exposure: No service: No Current occupational status: retired Cognitive needs: No Hearing needs: No Vision needs: No Questionnaire Medicare Wellness Checkup [age] What gender do you identify with?: male During the past 4 weeks, how much have you been bothered by emotional problems such as feeling anxious, depressed, irritable, sad or downhearted, and blue?: not at all During the past 4 weeks, has your physical & emotional health limited your social activities with family, friends, neighbors, or groups?: not at all During the past 4 weeks, how much bodily pain have you generally had?: mild pain During the past 4 weeks, was someone available to help you if you needed & wanted help?: yes, as much as I wanted During the past 4 weeks, what was the hardest physical activity you could do for at least 2 minutes?: moderate Can you get to places out of walking distance without help? (For eg., can you travel alone on buses, taxis or drive your car?): Yes Can you go shopping for groceries or clothes without someone's help?: Yes Can you prepare your own meals?: Yes Can you do your housework without help?: Yes Because of any health problems, do you need the help of another person with your personal care needs such as eating, bathing, dressing or getting around the house?: No Can you handle your own money without help?: Yes During the past 4 weeks, how would you rate your health in general?: fair During the past 4 weeks how have things been going for you?: pretty well Are you having difficulties driving your car?: no Do you always fasten your seat belt when you are in a car?: yes, usually During past 4 weeks, have you been bothered by the following: never: Falling or dizzy when standing up, Sexual problems?, Trouble eating well?, Teeth or denture problems?, Problems using the telephone? and Tiredness or fatigue? Have you fallen 2 or more times in the past year?: No Are you afraid of falling?: No Are you a smoker?: yes, and I might quit (heavy smoker, not ready to quit) During the past 4 weeks, how many drinks of wine, beer, or other alcoholic beverages did you have?: no alcohol at all Do you exercise for about 20 minutes 3 or more times a week?: yes, some of the time Have you been given information to help with the following?: no: Hazards in your house that might hurt you? and no: Keeping track of your medications? How often do you have trouble taking medicines the way you have been told to take them?: I always take medicine as prescribed How confident are you that you can control & manage most of your health problems?: very confident What is your race?: White Mini Mental State Exam (MMSE) Orientation What is the (year) (season) (date) (day) (month)?: year, season, date, day and month Where are we (state) (county) (town or city) (hospital) (floor)?: state, county, town or city, hospital/clinic and floor Registration Name of 3 unrelated objects clearly and slowly, then ask patient to repeat all 3 of them. (1st repeat determines score. Make sure they can repeat all three): object 1, object 2 and object 3 Attention & Calculation (CHOOSE ONE) Spell WORLD backwards (DLROW): 5 letters Recall Ask patient to repeat the 3 items from question #3.: object 1, object 2 and object 3 Language Show patient a wristwatch & ask what it is. Repeat for pencil.: watch Ask the patient to repeat the phrase 'No ifs, ands, or buts' after you.: correct Ask the patient to 'take a piece of paper with their right hand' 'fold paper in half' 'place paper on floor': take paper in right hand, fold paper in half and place paper on floor Print the sentence 'CLOSE YOUR EYES' on a piece. If patient actually closes eyes then score.: followed written direction Give patient a blank piece of paper & ask to write a sentence. Score if it contains a noun & verb.: sentence contains subject and verb Ask patient to copy figure of intersecting pentagons exactly. Score if all 10 angles & 2 intersects are included.: all 10 angles present & 2 are intersected Score Score: 29 Activity of Daily Living Bathing - sponge bath, tub bath or shower: receives no assistance (gets in/out by self, if usual bathing means Dressing - getting clothes from closets & drawers, including inner/outer garments & fasteners.: gets clothes & gets completely dressed without help Toileting - going to the 'toilet room' for urine/bowel elimination & cleaning self/arranging clothes: goes to toilet room, cleans self, arranges clothes without help Transfer: moves in & out of bed and chair without help (may use support object) Continence: controls urination/bowel movements completely by self Feeding: feeds self without help Total Score: 0 Information obtained from: patient Using telephone: independent Traveling: independent Shopping: independent Preparing meals: independent Housework: independent Taking medicine: independent Managing money: independent PHQ-9 Over the last 2 weeks, how often have you been bothered by any of the following problems? 1. Little interest or pleasure in doing things: not at all 2. Feeling down, depressed, or hopeless: not at all 3. Trouble falling or staying asleep, or sleeping too much: not at all 4. Feeling tired or having little energy: not at all 5. Poor appetite or overeating: not at all 6. Feeling bad about yourself - or that you are a failure or have let yourself or your family down: not at all 7. Trouble concentrating on things, such as reading the newspaper or watching television: not at all 8. Moving or speaking so slowly that other people could have noticed. Or the opposite - being so fidgety or restless that you have been moving around a lot more than usual: not at all 9. Thoughts that you would be better off or of hurting yourself in some way: not at all Total score: 0 Depression Screening Interpretation: Negative Depression Screening Done: Yes 82649 - PHQ-9 Billing: Yes Source: Developed by Drs. Aashish Lawton, Apolonia López, Wilfrido Concepcion and colleagues, with an educational jefferson from [employer]. KARLIE-7 AMB Questionnaire KARLIE-7 Date KARLIE - 7 assessed: 04/14/24 Feeling nervous, anxious, or on edge: 0 = Not at all Not being able to stop or control worryin = Not at all Worrying too much about different things: 0 = Not at all Trouble relaxin = Not at all Being so restless that it is hard to sit still: 0 = Not at all Becoming easily annoyed or irritable: 0 = Not at all Feeling afraid as if something awful might happen: 0 = Not at all Total KARLIE-7 score (0-4 normal; 5-9 mild; 10-14 moderate; 15-21 severe): 0 Source: Developed by Drs. Aashish LApolonia Ya Kurt Kroenke and colleagues, with an educational jefferson from [employer]. KARLIE-7 Assessment Billing KARLIE-7 Assessment Tool: KARLIE-7 Assessment 27612 Review of Systems Eyes Denies change in vision ENT Denies dizziness Card Denies chest pain at rest and Denies chest pain with activity Resp Denies cough GI Denies abdominal pain, Denies melena, Denies hematochezia and Denies change in stool character Neuro Denies dizziness Psych Denies anxiety and Denies depression Physical Exam Vital Signs: Last Vital Signs Pulse 89 04/14/24 13:43 BP 138/76 04/14/24 13:43 Pulse Ox 96 04/14/24 13:43 Oxygen Delivery Method Room Air 04/14/24 13:43 BMI result Body Mass Index 18.7 Resp Other: dim bilat, though moving air Cardio Rate: regular rate Rhythm: regular rhythm Heart sounds: S1 normal heart sound present and S2 normal heart sound present Neuro Other: able to stand from sitting position, able to tandem walk, neg rhomberg, did not pass whisper test Assessment & Plan Assessment & Plan (1) B12 deficiency: Code(s): E53.8 - Deficiency of other specified B group vitamins (2) Anemia: Code(s): D64.9 - Anemia, unspecified (3) Encounter for subsequent annual wellness visit (AWV) in Medicare patient: Code(s): Z00.00 - Encounter for general adult medical examination without abnormal findings Plan . Orders: Orders Complete Blood Count Auto Diff Today D64.9 - Anemia, unspecified, E53.8 - Deficiency of other specified B group vitamins Comprehensive [place]. Panel Fast Today D64.9 - Anemia, unspecified, E53.8 - Deficiency of other specified B group vitamins TSH reflex Free T4 Today D64.9 - Anemia, unspecified, E53.8 - Deficiency of other specified B group vitamins Lipid Panel Today D64.9 - Anemia, unspecified, E53.8 - Deficiency of other specified B group vitamins Lactate Dehydrogenase Today D64.9 - Anemia, unspecified, E53.8 - Deficiency of other specified B group vitamins UA CC w/rflx Micro + Cult Today D64.9 - Anemia, unspecified, E53.8 - Deficiency of other specified B group vitamins Vitamin B12 and Folate Today D64.9 - Anemia, unspecified, E53.8 - Deficiency of other specified B group vitamins IRON PROFILE Today D64.9 - Anemia, unspecified, E53.8 - Deficiency of other specified B group vitamins Ferritin Today D64.9 - Anemia, unspecified, E53.8 - Deficiency of other specified B group vitamins Reticulocyte Count Today D64.9 - Anemia, unspecified, E53.8 - Deficiency of other specified B group vitamins Medications: Refilled ascorbic acid (vitamin C) 1 g PO DAILY 90 tabs 1RF 90 days N39.0 - Urinary tract infection, site not specified mecobalamin (vitamin B12) 1,000 mcg PO DAILY 90 tabs 0RF meloxicam 7.5 mg PO DAILY PRN 30 tabs 2RF arthritis pain 30 days lisinopril 10 mg PO DAILY 90 tabs 1RF 90 days rosuvastatin 10 mg PO DAILY 90 tabs 1RF 90 days Quality Reporting (2019) Depression/Bipolar (159/160/161/177) PHQ-9: Total score: 0 Coding Level of Care Code Medicare Subsequent (G0439) Est Pt Level 3 (83235) Diagnoses B12 deficiency E53.8 Anemia D64.9 Encounter for subsequent annual wellness visit (AWV) in Medicare patient Z00.00 CPT Codes Advance Care Planning - Time spent: 1-15 minutes, on File ([id number]) Additional Codes KARLIE-7 Assessment Billing - KARLIE-7 Assessment Tool: KARLIE-7 Assessment 12592 ([id number]) PHQ-9 - 89674 - PHQ-9 Billing: Yes ([id number]) Advance Care Planning Forms completed: Health Care Proxy (filled out and copy in scan pile), MOLST (filled out and copy in scan pile) and Living will (refused) Time spent: 1-15 minutes, on File Actual minutes spent: 15
== END 2024-04-14 14:36 | disposition home or self-care (01) ==
PROVIDERS: PCP Nurse Practitioner Family; Visit Provider Nurse Practitioner Family
DX: Z00.00 Encounter for general adult medical examination without abnormal findings (principal); E53.8 Deficiency of other specified B group vitamins; D64.9 Anemia, unspecified

== ENCOUNTER → 2024-04-14 13:37 | Outpatient (BNVA) | payer MEDICARE, MEDICAID, SELFPAY | PROVIDERS: PCP Nurse Practitioner Family; Visit Provider Nurse Practitioner Family | DX: Z00.00 Encounter for general adult medical examination without abnormal findings (principal); E53.8 Deficiency of other specified B group vitamins; D64.9 Anemia, unspecified | CPT/HCPCS: 96127; 99212 ==

== ENCOUNTER 2024-05-06 07:29 | Outpatient (REF) | payer MEDICARE, MEDICAID, SELFPAY ==
[2024-05-06 10:36] LABS: Appearance Urine Clear; Color Urine Yellow; Glucose Urine UA Negative (Negative); Leukocyte Esterase Urine Small (1+) (Negative); Nitrite Urine Negative (Negative); PH 5.5 (5.0-9.0); UMIC TRIGGER UACC YES; Urine Blood Negative (Negative); Urine Ketones Negative (Negative); Urine Protein 30 (1+) mg/dL (Neg-Trace)
[2024-05-06 10:39] LABS: Bacteria Urine None Seen (None Seen); Hyaline Casts Urine 0-2 /LPF (0-2); RBC Urine 0-2 /HPF (0-2); UACC Culture Trigger YES
[2024-05-06 10:41] LABS: MANUAL DIFF FLAG NO
[2024-05-06 10:51] LABS: Basophils Absolute Auto 0.1 X10*3/uL (0.0-0.2); Basophils Percent Auto 0.7 % (0-2); Eosinophils Absolute Auto 0.1 X10*3/uL (0.0-0.4); Eosinophils Percent Auto 1.8 % (0-4); Hematocrit 41.8 % (42.0-52.0); Hemoglobin 13.6 g/dl (14.0-18.0); Imm Gran Abs Auto 0.03 X10*3/uL (0.00-0.03); Imm Gran Pct Auto 0.4 % (0.0-0.4); Immature Retic Fraction 11.6 % (2.3-13.4); Lymphocytes Absolute Auto 1.2 X10*3/uL (1.2-4.9); Lymphocytes Percent Auto 15.5 % (20-40); Mean Corpuscular HGB Conc 32.5 g/dl (31.0-36.0); Mean Corpuscular Hemoglobin 30.6 pg (27.0-33.0); Mean Corpuscular Volume 93.9 fL (80.0-98.0); Mean Platelet Volume 11.3 fL (9.4-12.4); Monocytes Absolute Auto 0.6 X10*3/uL (0.1-1.2); Monocytes Percent Auto 7.3 % (2-11); Neutrophils Absolute Auto 5.7 x10*3/uL (2.0-8.3); Neutrophils Percent Auto 74.3 % (45-73); Platelet Count 236 X10*3/uL (160-400); Red Blood Count 4.45 X10*6/uL (4.60-5.80); Red Cell Distribution Width 14.7 % (11.0-16.0); Retic HGB Equivalent 34.1 pg (30.0-35.0); Reticulocyte Percent 1.3 % (0.5-1.8); Reticulocytes Absolute 0.056 X10*6/uL (0.026-0.095); White Blood Count 7.7 X10*3/uL (4.8-10.8)
[2024-05-06 11:34] LABS: Alanine Aminotransferase 16 U/L (0-40); Alkaline Phosphatase 90 U/L (39-117); Anion Gap 11 (12-20); Aspartate Amino Transferase 24 U/L (5-37); Bilirubin Total 0.3 mg/dL (0.0-1.0); Blood Urea Nitrogen 19 mg/dL (9-16); Calcium 8.6 mg/dL (8.4-10.2); Carbon Dioxide 19 mmol/L (22-29); Chloride 117 mmol/L (96-108); Cholesterol 125 mg/dL (<200); Estimated Glomerular Filt Rate > 60; Glucose Fasting 95 mg/dL (60-99); HDL Cholesterol 42 mg/dL (>40); Iron 55 mcg/dL (45-160); LDL Cholesterol Calculated 69 mg/dL (<100); Lactate Dehydrogenase 366 U/L (118-273); Percent Iron Saturation 23 % (15-50); Potassium 4.8 mmol/L (3.3-5.1); Sodium 142 mmol/L (135-145); Total Iron Binding Capacity 244 mcg/dL (228-428); Total Protein 7.6 g/dL (6.5-8.0); Triglycerides 72 mg/dL (<150); Unsaturated Iron Binding 189 ug/dL
[2024-05-06 11:36] LABS: Ferritin 112 ng/mL (20-250); TSH reflex Free T4 0.36 uIU/mL (0.32-4.0)
[2024-05-06 11:55] LABS: Folate 5.9 ng/mL (> or = 4.0); Vitamin B12 282 pg/mL (200-900)
== END 2024-05-06 07:30 | disposition home or self-care (01) ==
LOC: HO.HMGCLDS 07:29
PROVIDERS: PCP Nurse Practitioner Family; Visit Provider Nurse Practitioner Family
DX: R22.31 Localized swelling, mass and lump, right upper limb (principal); E53.8 Deficiency of other specified B group vitamins; D64.9 Anemia, unspecified; Z13.6 Encounter for screening for cardiovascular disorders
CPT/HCPCS: 36415; 80053; 80061; 81001; 82607; 82728; 82746; 83540; 83615; 84443; 85025; 85045; 87086; 99212

== ENCOUNTER 2024-05-06 07:59 | Outpatient (AMB) | payer MEDICARE, MEDICAID, SELFPAY ==
--- NOTE | 2024-05-06 08:13 | AM.OFFWIN_ITS ---
Intake Vital Signs 05/06/24 08:14 Weight 125 lb BP 110/74 Blood Pressure Location Lt brachial Position Sitting Pulse 72 Pulse Source Pulse Oximeter Pulse Oximetry (%) 97 Oxygen Delivery Method Room Air Intake Visit Reasons: EP ? cyst underneath the armpit Intake Note: Patient here for cyst under right armpit that he noticed saturday. Patient Tobacco Use Status: Current everyday Tobacco user Allergies No Known Allergies [No Known Allergies*] Allergy (Verified 05/06/24 08:19) Do you need a note to return to daycare/school/sports/work: No HPI HPI Comments History of Present Illness Details Patient is a 73-year-old male presenting with a rather large lump in his right armpit. He states he was snow blowing on Saturday and noticed it then but he does not know how long it has been there for. He tells me it is not painful, it is not painful if he touches it. He denies any night sweats or fevers. Patient tells me his mother of cancer at a young age and he is concerned it is cancerous. [facility] Medical History Smoker Radiculitis, cervical Smoker Surgical History History of transurethral resection of prostate Webbed fingers of both hands Family History Father Chewing tobacco use Mother Skin cancer Smoker Brother No problems noted. Sister No problems noted. Daughter No problems noted. Social History Housing: Apartment Alcohol intake: former Patient Tobacco Use Status: Current everyday Tobacco user Cigarette Packs Per Day: 1 Cigarettes Per Day: 15 e-Cigarette/Vaping Use: Never Used Second Hand Smoke Exposure: No service: No Current occupational status: retired Cognitive needs: No Hearing needs: No Vision needs: No Review of Systems Const All systems reviewed & are unremarkable except as noted in HPI and below Physical Exam Vital Signs: Last Vital Signs Pulse 72 05/06/24 08:14 BP 110/74 05/06/24 08:14 Pulse Ox 97 05/06/24 08:14 Oxygen Delivery Method Room Air 05/06/24 08:14 Const General: cooperative, healthy appearing, comfortable, no acute distress and well developed Orientation/consciousness: patient oriented x3 Limitations: no limitations HEENT Head: Yes normal to inspection Ears: hearing grossly normal bilaterally General nose exam: Normal external nose present Face and sinus: Yes normal facial exam Eyes General: appearance normal, both eyes and all related structures Neck Neck: Yes normal visual inspection and Yes full ROM Resp Effort & Inspection: normal respiratory effort and able to speak in complete sentences Skin General skin exam: no rashes or lesions noted Neuro General: patient oriented x3 Extrem Other: Right axilla has a 10 cm x 7 cm mobile, firm, smooth, nontender to palpation lump. No other skin changes noted, no warmth. No signs of infection Assessment & Plan Assessment & Plan (1) Axillary lump: Code(s): R22.30 - Localized swelling, mass and lump, unspecified upper limb Qualifiers: Laterality: right Qualified Code(s): R22.31 - Localized swelling, mass and lump, right upper limb Plan: Likely a lipoma but due to location, we will request that the PCP covering for this patient's PCP as he is on vacation this week, order an ultrasound to rule out any lymph node involvement. Patient has an appointment already scheduled with his PCP in 2 weeks for follow-up on the ultrasound results. Coding Level of Care Code Est Pt Level 4 (93612) Diagnoses Mass of right axilla R22.31 Laterality: right
[2024-05-06 08:14] VITALS: BP 110/74; PULSE 72; O2SAT 97
== END 2024-05-06 08:28 | disposition home or self-care (01) ==
PROVIDERS: PCP Nurse Practitioner Family; Visit Provider Physician Assistant
DX: R22.31 Localized swelling, mass and lump, right upper limb (principal)

== ENCOUNTER 2024-05-13 14:06 | Outpatient (REF) | payer MEDICARE, MEDICAID, SELFPAY ==
--- NOTE | ~2024-05-13 | US_ITS ---
EXAMINATION: US EXTREMITY, NONVASCULAR CLINICAL INFORMATION: Right axillary mass/palpable abnormality, approximate baseball size. COMPARISON: None available. TECHNIQUE: Grayscale and color Doppler ultrasound imaging of the right axilla was performed in the area as indicated by the patient. The contralateral axilla was also scanned for comparison purposes. FINDINGS: There are multiple bulky, pathologic appearing lymph nodes in the right axilla, correlating with the area of palpable concern as indicated by the patient. The largest measures 4.3 x 2.2 x 3.6 cm, the second largest measures 3.4 x 1.7 x 2.7 cm, and the third largest measures 1.9 x 1.4 x 1.8 cm. All have increased vascularity on color Doppler flow. Scanning of the left axilla demonstrates normal-appearing subcentimeter lymph nodes. US/US extremity nonvascular IMPRESSION: 1. Pathologic right axillary bulky lymphadenopathy. Etiology is unclear on this exam. Electronically signed by: Weston Gilbert MD 05/13/2024 03:15 PM [facility]IMMERMAN
== END 2024-05-13 14:07 | disposition home or self-care (01) ==
LOC: HO.HMGCX 14:06
PROVIDERS: PCP Nurse Practitioner Family; Visit Provider Internal Medicine
DX: R22.31 Localized swelling, mass and lump, right upper limb (principal)
CPT/HCPCS: 76882

== ENCOUNTER → 2024-05-13 14:20 | Outpatient (BNV) | payer MEDICARE, MEDICAID, SELFPAY | PROVIDERS: PCP Nurse Practitioner Family; Visit Provider Radiology Diagnostic Radiology | DX: R59.0 Localized enlarged lymph nodes (principal) | CPT/HCPCS: 76882 ==

== ENCOUNTER 2024-05-25 09:02 | Outpatient (REF) | payer MEDICARE, MEDICAID, SELFPAY ==
--- NOTE | ~2024-05-25 | XR_ITS ---
EXAMINATION: XR CHEST CLINICAL INFORMATION: F17.200 - Nicotine dependence, unspecified, uncomplicated COMPARISON: Chest x-ray 06/09/2018 TECHNIQUE: 2 views of the chest were obtained. FINDINGS: The lungs are hyperinflated but clear of acute process. Heart size and pulmonary vascularity is normal. There is mild spondylosis of dorsal spine. No aggressive lytic or sclerotic process seen. XR/XR chest 2V IMPRESSION: Unremarkable chest examination. Electronically signed by: Enrique aWddell MD 05/25/2024 09:54 AM EST
== END 2024-05-25 09:03 | disposition home or self-care (01) ==
LOC: HO.XRAY 09:02
PROVIDERS: PCP Nurse Practitioner Family; Visit Provider Surgery
DX: R22.31 Localized swelling, mass and lump, right upper limb (principal); F17.200 Nicotine dependence, unspecified, uncomplicated; Z71.6 Tobacco abuse counseling
CPT/HCPCS: 71046; 99202

== ENCOUNTER 2024-05-25 09:02 | Outpatient (AMB) | payer MEDICARE, MEDICAID, SELFPAY ==
[2024-05-25 09:05] VITALS: BP 167/70; PULSE 85; BMI 18.1
--- NOTE | 2024-05-25 09:05 | A.OFFVIS_ITS ---
Vital Signs 3 05/25/24 09:05 Height 5 ft 10 in Weight 126 lb BMI 18.1 BP 167/70 H Blood Pressure Location Lt brachial Position Sitting Pulse 85 Intake Visit Reasons: swelling, mass and lump, right upper limb Intake Note: Patient referred by pcp Javi Blair PA-C for mass on Rt upper axilla. Present for months. 2nd concern; spot on Rt post shoulder. Recently noticed. Denies pain, oozing, itch. Reports mom from Melanoma. Patient c/o: painful with touch or stretching, enlarging. RT axilla US: 05-13-2024 [address] Required: No Accompanied by: girlfriend Leydi Allergies No Known Allergies [No Known Allergies*] Allergy (Verified 05/25/24 09:12) Medication List - Last Reconciled 05/25/24 by Jhonatan Urias MD ascorbic acid (vitamin C) 1 g PO DAILY 90 days bethanechol chloride 50 mg PO BID 90 days lisinopril 10 mg PO DAILY 90 days mecobalamin (vitamin B12) 1,000 mcg PO DAILY meloxicam 7.5 mg PO DAILY PRN 30 days methenamine hippurate 1 g PO DAILY 90 days rosuvastatin 10 mg PO DAILY 90 days HPI Comments Details: Patient presents with a significant other. He has had a several month history of an enlarging right axillary mass. He has no such masses elsewhere. Because it is increasing in size become more symptomatic presents here for further evaluation. Patient denies any fever, chills, night sweats although he has lost 10 lb over the last several months time according to his significant other. Patient was a very significant smoking history of 1 pack per day for over 55 years. He has never had any chest x-rays or scans. He denies any chronic cough, hemoptysis, chest pain, or wheezing. Chart was reviewed and patient evaluated [facility] Medical History Mass of right inguinal region Smoker Radiculitis, cervical Smoker Surgical History History of transurethral resection of prostate Webbed fingers of both hands Family History Father Chewing tobacco use Mother Skin cancer Smoker Brother No problems noted. Sister No problems noted. Daughter No problems noted. Social History Housing: Apartment Alcohol intake: former Patient Tobacco Use Status: Current everyday Tobacco user Cigarette Packs Per Day: 1 Cigarettes Per Day: 15 e-Cigarette/Vaping Use: Never Used Second Hand Smoke Exposure: No service: No Current occupational status: retired Cognitive needs: No Hearing needs: No Vision needs: No Physical Exam Vital Signs: Last Vital Signs Pulse 85 05/25/24 09:05 BP 167/70 H 05/25/24 09:05 BMI result Body Mass Index 18.1 Neck Other: No obvious cervical periclavicular adenopathy. Chest Other: Chest breath sounds bilaterally, consistent with COPD. Patient was a roughly 10 by 6 cm right axillary mass consistent with either a large lymph node or lipoma. Chest/axillae images: 2 1. GI Other: Scaphoid, soft, benign Assessment & Plan Assessment & Plan (1) Smoker: Code(s): F17.200 - Nicotine dependence, unspecified, uncomplicated Category: Surgical Plan: 1., risks, benefits, alternatives of right axillary mass excision were reviewed with the patient and included but not limited to bleeding, infection, seroma formation, numbness, pain, scarring the patient wished to proceed. The area NGT use of this range from lipoma, sebaceous cyst or large lymph node. Pathology will give us a definitive diagnosis. 2. Because of the significant smoking history, a chest x-ray has been ordered as a baseline study. Patient will receive a call from our or journalism internship for his above-mentioned procedure. All questions answered. (2) Mass of right axilla: Code(s): R22.31 - Localized swelling, mass and lump, right upper limb Category: Surgical Plan: See above Orders: Orders 2 XR chest 2V Today F17.200 - Nicotine dependence, unspecified, uncomplicated, R22.31 - Localized swelling, mass and lump, right upper limb Coding Level of Care Code New Pt Level 5 (79886) Diagnoses Smoker F17.200 Mass of right axilla R22.31
== END 2024-05-25 09:17 | disposition home or self-care (01) ==
PROVIDERS: PCP Nurse Practitioner Family; Visit Provider Surgery
DX: R22.31 Localized swelling, mass and lump, right upper limb (principal); F17.200 Nicotine dependence, unspecified, uncomplicated
CPT/HCPCS: 99204

== ENCOUNTER → 2024-05-25 09:32 | Outpatient (BNV) | payer MEDICARE, MEDICAID, SELFPAY | PROVIDERS: PCP Nurse Practitioner Family; Visit Provider Radiology Diagnostic Radiology | DX: F17.210 Nicotine dependence, cigarettes, uncomplicated (principal); R22.2 Localized swelling, mass and lump, trunk; R22.31 Localized swelling, mass and lump, right upper limb | CPT/HCPCS: 71046 ==

== ENCOUNTER 2024-06-19 05:44 | Day surgery (SDC) | payer MEDICARE, MEDICAID, SELFPAY ==
[2024-06-16 14:39] VITALS: BMI 18.1
[2024-06-16 14:50] VITALS: BMI 18.1
--- NOTE | 2024-06-18 09:52 | P.CONAN_ITS ---
Documented by User: Adri Jacob NP 06/18/24 14:09 HPI - Anesthesia Eval Consult details Narrative: 73yo M for Right Wide Local Excision axillary Mass WITH MODIFIER DNR on file [facility] Active Problems Active Problems: All Active Problems Mass of right axilla (Acute) Axillary lymphadenopathy (Acute) Mass of right axilla (Acute) Axillary lump (Acute) Encounter for subsequent annual wellness visit (AWV) in Medicare patient (Acute) B12 deficiency (Acute) Proteinuria (Acute) Anemia (Acute) Skin lesion (Acute) Encounter for annual wellness visit (AWV) in Medicare patient (Acute) Hypotonic neurogenic bladder (Acute) Colonoscopy refused (Acute) Decreased hearing (Acute) Smoker (Acute) Left hip pain (Acute) Lumbar back pain (Acute) Smoker (Acute) HTN (hypertension) (Acute) Conjunctivitis (Acute) Arrhythmia (Acute) Elevated fasting blood sugar (Acute) Lumbar back pain (Acute) Incomplete emptying of bladder due to benign prostatic hyperplasia (Acute) Recurrent UTI (urinary tract infection) (Acute) Urinary urgency (Acute) BPH loc w urin obs/LUTS (Acute) Dyslipidemia (Acute) Cerumen impaction (Acute) Screening for colon cancer (Acute) Smoker (Acute) Past Medical History Medical History Hypotonic neurogenic bladder Anemia Dyslipidemia HTN (hypertension) BPH (benign prostatic hyperplasia) Back pain Mass of right inguinal region Radiculitis, cervical Family History Family History Father Chewing tobacco use Mother Skin cancer Smoker Brother No problems noted. Sister No problems noted. Daughter No problems noted. Surgical History Surgical History H/O colonoscopy History of transurethral resection of prostate Webbed fingers of both hands Social History Social History Housing: Apartment Are you a primary day care provider to a significant other at home: No Do you presently have visiting nurse or other home services: No Alcohol intake: former Patient Tobacco Use Status: Current everyday Tobacco user Tobacco use type: Cigarette Cigarette Packs Per Day: 1 Cigarettes Per Day: 15 Years Smoked: 50 e-Cigarette/Vaping Use: Never Used Second Hand Smoke Exposure: No Use of substances other than those prescribed or required for medical reasons: No Have you been hit, kicked, punched, or otherwise hurt by someone within the past year? If so, by whom?: No Spiritual Healthcare Practices: none Mandaen Healthcare Practices: none Cultural Healthcare Practices: none Are you DNR?: Yes Advance Directives Information Provided: Yes (MOLST form scanned in chart) Advance Directives on File: Yes Advance Directives Date on File: 04/11/23 Recently lost weight without trying: No Eating poorly because of decreased appetite: No Nutrition Risks: No Nutritional Risk Poor oral hygiene: No (upper & lower full denture) service: No Current occupational status: retired Cognitive needs: No Hearing needs: No Vision needs: No Meds Allergies Allergy/AdvReac Type Severity Reaction Status Date / Time No Known Allergies Allergy Verified 06/19/24 06:34 [No Known Allergies*] Exam Height,Weight and Vital Signs: Height 5 ft 10 in Weight 57.153 kg Pertinent Lab Results Pertinent Lab Results: Laboratory Tests 05/06/24 05/06/24 07:35 08:20 WBC 7.7 Hgb 13.6 L Hct 41.8 L Plt Count 236 Sodium 142 Potassium 4.8 Chloride 117 H Carbon Dioxide 19 L BUN 19 H Creatinine 1.12 Assessment and Plan Assessment Anesthesia Assessment: Chart Reviewed Documented by User: Essie Peraza MD 06/19/24 07:40 PMFSH Past Medical History Medical History Hypotonic neurogenic bladder Anemia Dyslipidemia HTN (hypertension) BPH (benign prostatic hyperplasia) Back pain Mass of right inguinal region Radiculitis, cervical Family History Family History Father Chewing tobacco use Mother Skin cancer Smoker Brother No problems noted. Sister No problems noted. Daughter No problems noted. Family history of problems with anesthesia: No Surgical History Surgical History H/O colonoscopy History of transurethral resection of prostate Webbed fingers of both hands History of Problems with Anesthesia: No Social History Social History Housing: Apartment Are you a primary day care provider to a significant other at home: No Do you presently have visiting nurse or other home services: No Alcohol intake: former Patient Tobacco Use Status: Current everyday Tobacco user Tobacco use type: Cigarette Cigarette Packs Per Day: 1 Cigarettes Per Day: 15 Years Smoked: 50 e-Cigarette/Vaping Use: Never Used Second Hand Smoke Exposure: No Use of substances other than those prescribed or required for medical reasons: No Have you been hit, kicked, punched, or otherwise hurt by someone within the past year? If so, by whom?: No Spiritual Healthcare Practices: none Mandaen Healthcare Practices: none Cultural Healthcare Practices: none Are you DNR?: Yes Advance Directives Information Provided: Yes (MOLST form scanned in chart) Advance Directives on File: Yes Advance Directives Date on File: 04/11/23 Recently lost weight without trying: No Eating poorly because of decreased appetite: No Nutrition Risks: No Nutritional Risk Poor oral hygiene: No (upper & lower full denture) service: No Current occupational status: retired Cognitive needs: No Hearing needs: No Vision needs: No Meds Allergies Allergy/AdvReac Type Severity Reaction Status Date / Time No Known Allergies Allergy Verified 06/19/24 06:34 [No Known Allergies*] Exam Airway Mallampati Class: II TM Dist: >3cm Neck ROM: Limited Heart: rrr Lungs: cta Assessment and Plan Assessment Anesthesia Assessment: Anesthesia Plan Discussed Final Anesthetic Review Family History of Problems with Anesthesia: No History of Problems with Anesthesia: No NPO: Yes ASA Class: II Final Preanesthetic Review: No Changes in Pt Med Stat, Meds/Allgs Chart Reviewed, Consent Obtained/Reviewed and Anes Risks/Benef Reviewed Patient Risk: Low Procedure Risk: Low Anesthetic Plan Anesthetic Plan: GA and MAC: Disposition: Standard PACU
--- NOTE | 2024-06-18 11:59 | MHC.SHP ---
Pre-Procedural Eval Section A - 24 Hr Update-Section A only Date of Service: 06/19/24 The patient is an INPATIENT: No Changes since office visit: No Cold of Flu in the past 2 weeks, No New Medical Problems, No Changes in Medication and No Patient answered all questions Section B - Complete if H&P > 30 days Chief Complaint: Localized swelling, mass and lump, right upper lipscomb Allergies: Allergies Allergy/AdvReac Type Severity Reaction Status Date / Time No Known Allergies Allergy Verified 05/25/24 09:12 [No Known Allergies*] Review of Systems Sugical H&P ROS: Negative: Constitution, Cardiovascular, Respiratory, Neurological, Psychiatric, Hem-Onc, Allergic/Immunologic, Gastrointestinal, Genitourinary, Musculoskeletal, Integumentary, Endocrine and Eyes/Ears/Nose/Throat Exam Surgical H&P Exam: Normal: HEENT, Normal: Heart, Normal: Lungs, Normal: Extremities, Normal: Abdomen, Normal: Skin and Normal: Neurological Plan I have reviewed the history and physical and performed a pertinent physical examination on my patient. No changes have occurred unless specified. Time Spent With Patient Time: Total time managing care of this patient today ____ minutes.
[2024-06-19] VITALS (8 sets, daily range): BP systolic 131–154; BP diastolic 69–80; PULSE 69–84; RESP 16–18; TEMP 36.4–37.2; O2SAT 95–98; BMI 17.5
[2024-06-19] MEDS: Lactated Ringers 1,000 ML 100 ML IVCONT (07:01)
--- NOTE | 2024-06-19 08:33 | P.OP_ITS ---
Operative Note Operative Note Date of Service: 06/19/24 Narrative: Preoperative diagnosis: [] Right axillary masses Postop diagnosis: [] Right axillary adenopathy Procedure [] excision multiple right axillary lymph nodes Surgeon: [] Adonay Mold Filler And Drainer: [] Ainsley Type of Anesthesia: [] General Indication for surgery: [] Patient had a collection of large, fish flesh type right axillary adenopathy adhered to each other very suspicious for a neoplastic/lymphoma process. Specimens sent as fresh specimens to pathology for further evaluation Findings: [] Patient brought to the operating room, placed on operative table supine position, after an adequate level of general anesthesia was induced, the right axilla was prepped and draped in usual sterile fashion using an infraumbilical curvilinear incision, this carried down through skin, subcutaneous tissue, were multiple cervical lymph nodes as described above were encountered. These were all firm, fish flesh type quality adhered to each other. Multiple nodes were circumferentially dissected out from the axilla using combination of blunt, sharp, and Bovie dissection. Dissection was well away from axillary vessels. Specimens were sent to pathology for permanent specimen taken as noted above. Wound was irrigated, secured hemostasis, and closed in the following manner; deep soft tissue was reapproximated using interrupted 3-0 Vicryl suture. Skin was closed using interrupted inverted dermal 3-0 Vicryl sutures followed by Steri-Strips and sterile dressings. Wounds were infiltrated at the beginning at the end of the case with 0.5% Marcaine/1% lidocaine. Sponge, needle, and instrument counts were reported correct. Patient tolerated the procedure well and emerged from anesthesia stable condition. EBL minimal
== END 2024-06-19 09:30 | disposition home or self-care (01) ==
PROVIDERS: Pathology Anatomic Pathology & Clinical Pathology; PCP Nurse Practitioner Family; Visit Provider Surgery
PROC: (CPT 38525; principal; 2024-06-19 07:30)
DX: R22.31 Localized swelling, mass and lump, right upper limb (principal); R59.0 Localized enlarged lymph nodes; Z84.0 Family history of diseases of the skin and subcutaneous tissue; D64.9 Anemia, unspecified; I10 Essential (primary) hypertension; E78.5 Hyperlipidemia, unspecified; Z79.899 Other long term (current) drug therapy; F17.210 Nicotine dependence, cigarettes, uncomplicated
CPT/HCPCS: 38525; 36415; 88184; 88185; 88300; 88305; 88341; 88342; 88360; 88365; 88374; J0131; J0690; J1100; J2003; J2371; J2405; J2704; J2795; J3010

== ENCOUNTER → 2024-06-19 05:44 | Outpatient (BNV) | payer MEDICARE, MEDICAID, SELFPAY | PROVIDERS: PCP Nurse Practitioner Family; Visit Provider Surgery | DX: R59.0 Localized enlarged lymph nodes (principal) | CPT/HCPCS: 38500 ==

== ENCOUNTER 2024-06-30 10:41 | Outpatient (AMB) | payer MEDICARE, MEDICAID, SELFPAY ==
--- NOTE | 2024-06-30 10:42 | A.OFFVIS_ITS ---
Vital Signs 06/30/24 10:43 Height 5 ft 10 in Weight 121 lb BMI 17.4 Intake Visit Reasons: S/P WLE Rt. axillary mass Intake Note: Patient here s/p WLE Rt axilla mass bx. Patient c/o: swelling down his arm and pain. Allergies No Known Allergies [No Known Allergies*] Allergy (Verified 06/30/24 10:42) HPI Comments Details: Patient presents for follow up with a significant other status post right axillary mass excision. He has swelling at the incision site/seroma and upper arm swelling as well. No other issues. Pathology was consistent with lymphoma. Further studies are being undertaken. Interestingly, patient's mother and daughter both had lymphoma. [facility] Medical History Hypotonic neurogenic bladder Anemia Dyslipidemia HTN (hypertension) BPH (benign prostatic hyperplasia) Back pain Mass of right inguinal region Radiculitis, cervical Surgical History H/O colonoscopy History of transurethral resection of prostate Webbed fingers of both hands Family History Father Chewing tobacco use Mother Skin cancer Smoker Brother No problems noted. Sister No problems noted. Daughter No problems noted. Social History Housing: Apartment Are you a primary senior care specialist to a significant other at home: No Do you presently have visiting nurse or other home services: No Alcohol intake: former Patient Tobacco Use Status: Current everyday Tobacco user Tobacco use type: Cigarette Cigarette Packs Per Day: 1 Cigarettes Per Day: 15 Years Smoked: 50 e-Cigarette/Vaping Use: Never Used Second Hand Smoke Exposure: No Advance Directives Date on File: 04/11/23 service: No Current occupational status: retired Cognitive needs: No Hearing needs: No Vision needs: No Physical Exam Vital Signs: BMI result Body Mass Index 17.4 Extrem Other: Extremity incision is healing uneventfully. Patient was a moderately sized seroma which was aspirated under sterile technique and 180 cc of serous fluid retrieved. Dressing applied. Patient tolerated procedure well. Mild right upper extremity edema as well but the extremity grossly neurovascularly intact Assessment & Plan Assessment & Plan (1) Encounter for postoperative wound check: Code(s): Z48.89 - Encounter for other specified surgical aftercare Category: Medical Plan 1. Patient was see me in 1 week's time for follow-up. He should avoid strenuous activities, apply ice of the wound, 2. No for out of work until follow-up will be provided. 3. Follow-up for oncology will be undertaken. All questions answered. Coding Level of Care Code Global (81649) Diagnoses Encounter for postoperative wound check Z48.89
[2024-06-30 10:43] VITALS: BMI 17.4
== END 2024-06-30 11:02 | disposition home or self-care (01) ==
LOC: HO.HGS 10:41
PROVIDERS: PCP Nurse Practitioner Family; Visit Provider Surgery
DX: Z48.89 Encounter for other specified surgical aftercare (principal)
CPT/HCPCS: 99024

== ENCOUNTER → 2024-06-30 10:41 | Outpatient (BNVA) | payer MEDICARE, MEDICAID, SELFPAY | PROVIDERS: PCP Nurse Practitioner Family; Visit Provider Surgery | DX: Z48.817 Encounter for surgical aftercare following surgery on the skin and subcutaneous tissue (principal); Z98.890 Other specified postprocedural states | CPT/HCPCS: 99212 ==

== ENCOUNTER 2024-07-07 09:24 | Outpatient (AMB) | payer MEDICARE, MEDICAID, SELFPAY ==
--- NOTE | 2024-07-07 09:45 | MHC.OFFVIS ---
Vital Signs 07/07/24 09:52 Height 5 ft 10 in Weight 129 lb BMI 18.5 BP 133/63 Blood Pressure Location Lt brachial Position Sitting Pulse 91 Intake Visit Reasons: S/P WLE Rt. axillary mass Intake Note: Patient here s/p FNA bx Rt axilla. Patient c/o: redness inflammation. Arm, wrist swollen. Feels warm to touch. Wet Process Miller Head Assistant Required: No Accompanied by: spouse Leydi Li Allergies No Known Allergies [No Known Allergies*] Allergy (Verified 07/07/24 09:51) HPI Comments Details: Patient presents for follow-up. He has a smaller seroma in the axilla. His right arm still has modest swelling. Otherwise doing relatively well. [facility] Medical History Hypotonic neurogenic bladder Anemia Dyslipidemia HTN (hypertension) BPH (benign prostatic hyperplasia) Back pain Mass of right inguinal region Radiculitis, cervical Surgical History H/O colonoscopy History of transurethral resection of prostate Webbed fingers of both hands Family History Father Chewing tobacco use Mother Skin cancer Smoker Brother No problems noted. Sister No problems noted. Daughter No problems noted. Social History Housing: Apartment Are you a primary patient care secretary to a significant other at home: No Do you presently have visiting nurse or other home services: No Alcohol intake: former Patient Tobacco Use Status: Current everyday Tobacco user Tobacco use type: Cigarette Cigarette Packs Per Day: 1 Cigarettes Per Day: 15 Years Smoked: 50 e-Cigarette/Vaping Use: Never Used Second Hand Smoke Exposure: No Advance Directives Date on File: 04/11/23 service: No Current occupational status: retired Cognitive needs: No Hearing needs: No Vision needs: No Physical Exam Vital Signs: Last Vital Signs Pulse 91 07/07/24 09:52 BP 133/63 07/07/24 09:52 BMI result Body Mass Index 18.5 Extrem Other: Incision clean dry and intact. Patient was a very small recurrent seroma. Under sterile technique only 30 cc retrieved (versus almost 200 cc last visit) Patient does have moderate right upper extremity lymphedema but the arm is grossly neurovascularly intact Office Procedures Aspiration of Seroma Details: Under sterile technique, right axilla aspiration of 30 cc serous fluid. Dressing applied. Well-tolerated Aspiration of Seroma: [id number] Seroma Aspiration All charges added?: Procedure code (CPT) selection complete Assessment & Plan Assessment & Plan (1) Encounter for postoperative wound check: Code(s): Z48.89 - Encounter for other specified surgical aftercare Category: Medical (2) Postprocedural seroma of skin and subcutaneous tissue following other procedure: Code(s): L76.34 - Postprocedural seroma of skin and subcutaneous tissue following other procedure Category: Medical Plan Patient was scheduled to see his oncologist tomorrow. I strongly encouraged the patient and his who was present to make that appointment. Lymphedema unfortunately I think is a combination of postsurgical changes and the tremendous lymph adenopathy that was removed and residual disease in the axilla. Patient was been given recommendations including elevate his extremity, milking of the arm as well. Patient may require a Port-A-Cath and then has been instructed to contact me should this be needed. We will await oncology consultation regarding further interventions/studies. Orders: Orders AMB Aspiration of Seroma Today L76.34 - Postprocedural seroma of skin and subcutaneous tissue following other procedure Coding Level of Care Code Complex EM visit Add On G2211 Diagnoses Encounter for postoperative wound check Z48.89 Postprocedural seroma of skin and subcutaneous tissue following other procedure L76.34 CPT Codes Aspiration of Seroma ([id number])
[2024-07-07 09:52] VITALS: BP 133/63; PULSE 91; BMI 18.5
== END 2024-07-07 10:05 | disposition home or self-care (01) ==
PROVIDERS: PCP Nurse Practitioner Family; Visit Provider Surgery
DX: L76.34 Postprocedural seroma of skin and subcutaneous tissue following other procedure (principal); Z48.89 Encounter for other specified surgical aftercare
CPT/HCPCS: 10160

== ENCOUNTER → 2024-07-07 09:24 | Outpatient (BNVA) | payer MEDICARE, MEDICAID, SELFPAY | PROVIDERS: PCP Nurse Practitioner Family; Visit Provider Surgery | DX: L76.34 Postprocedural seroma of skin and subcutaneous tissue following other procedure (principal); Z48.89 Encounter for other specified surgical aftercare | CPT/HCPCS: 10160 ==

== ENCOUNTER → 2024-07-16 06:36 | Day surgery (SDC) | payer MEDICARE, MEDICAID, SELFPAY ==
--- NOTE | 2024-07-14 15:21 | HO.ANESPROP2 ---
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 - following with [facility] oncology DNR on file [facility] Active Problems Active Problems: All Active Problems Lymphoma (Acute) Postprocedural seroma of skin and subcutaneous tissue following other procedure (Acute) Encounter for postoperative wound check (Acute) Encounter for postoperative wound check (Acute) Mass of right axilla (Acute) Axillary lymphadenopathy (Acute) Mass of right axilla (Acute) Axillary lump (Acute) Encounter for subsequent annual wellness visit (AWV) in Medicare patient (Acute) B12 deficiency (Acute) Proteinuria (Acute) Anemia (Acute) Skin lesion (Acute) Encounter for annual wellness visit (AWV) in Medicare patient (Acute) Hypotonic neurogenic bladder (Acute) Colonoscopy refused (Acute) Decreased hearing (Acute) Smoker (Acute) Left hip pain (Acute) Lumbar back pain (Acute) Smoker (Acute) HTN (hypertension) (Acute) Conjunctivitis (Acute) Arrhythmia (Acute) Elevated fasting blood sugar (Acute) Lumbar back pain (Acute) Incomplete emptying of bladder due to benign prostatic hyperplasia (Acute) Recurrent UTI (urinary tract infection) (Acute) Urinary urgency (Acute) BPH loc w urin obs/LUTS (Acute) Dyslipidemia (Acute) Cerumen impaction (Acute) Screening for colon cancer (Acute) Smoker (Acute) Past Medical History Medical History Hypotonic neurogenic bladder Anemia Dyslipidemia HTN (hypertension) BPH (benign prostatic hyperplasia) Back pain Mass of right inguinal region Radiculitis, cervical Family History Family History Father Chewing tobacco use Mother Skin cancer Smoker Brother No problems noted. Sister No problems noted. Daughter No problems noted. Family history of problems with anesthesia: No Surgical History Surgical History H/O colonoscopy History of transurethral resection of prostate Webbed fingers of both hands History of Problems with Anesthesia: No Social History Social History Housing: Apartment Are you a primary hospice patient care secretary to a significant other at home: No Do you presently have visiting nurse or other home services: No Alcohol intake: former Patient Tobacco Use Status: Current everyday Tobacco user Tobacco use type: Cigarette Cigarette Packs Per Day: 1 Cigarettes Per Day: 15 Years Smoked: 50 e-Cigarette/Vaping Use: Never Used Second Hand Smoke Exposure: No Advance Directives Date on File: 04/11/23 service: No Current occupational status: retired Cognitive needs: No Hearing needs: No Vision needs: No Meds Allergies Allergy/AdvReac Type Severity Reaction Status Date / Time No Known Allergies Allergy Verified 07/07/24 09:51 [No Known Allergies*] Exam Pertinent Lab Results Pertinent Lab Results: Laboratory Tests 05/06/24 05/06/24 07:35 08:20 WBC 7.7 Hgb 13.6 L Hct 41.8 L Plt Count 236 Sodium 142 Potassium 4.8 Chloride 117 H Carbon Dioxide 19 L BUN 19 H Creatinine 1.12 Assessment and Plan Assessment Anesthesia Assessment: Chart Reviewed Final Anesthetic Review Family History of Problems with Anesthesia: No History of Problems with Anesthesia: No
[2024-07-16 06:52] VITALS: BP 163/71; PULSE 80; RESP 16; TEMP 36.7; O2SAT 98; BMI 18.3
[2024-07-16] MEDS: Lactated Ringers 1,000 ML 100 ML IVCONT (07:15)
== END ==
LOC: HO.SSS 06:37
PROVIDERS: PCP Nurse Practitioner Family; Visit Provider Surgery
DX: Z45.2 Encounter for adjustment and management of vascular access device (principal); Z53.8 Procedure and treatment not carried out for other reasons; C83.34 Diffuse large B-cell lymphoma, lymph nodes of axilla and upper limb; L76.34 Postprocedural seroma of skin and subcutaneous tissue following other procedure; R19.09 Other intra-abdominal and pelvic swelling, mass and lump; I10 Essential (primary) hypertension; D64.9 Anemia, unspecified; E78.00 Pure hypercholesterolemia, unspecified; N40.0 Benign prostatic hyperplasia without lower urinary tract symptoms; N31.2 Flaccid neuropathic bladder, not elsewhere classified; F17.210 Nicotine dependence, cigarettes, uncomplicated; Z79.899 Other long term (current) drug therapy

== ENCOUNTER 2024-07-24 08:07 | Day surgery (SDC) | payer MEDICARE, MEDICAID, SELFPAY ==
[2024-07-24] VITALS (14 sets, daily range): BP systolic 117–149; BP diastolic 60–84; PULSE 72–94; RESP 14–18; TEMP 36.6–37.1; O2SAT 96–100; BMI 18.5; BMI 17.8
--- NOTE | ~2024-07-24 | IR_ITS ---
CLINICAL HISTORY: 73-year-old man with non-Hodgkin's lymphoma. The patient presents to interventional radiology for placement of a port for chemotherapy. PROCEDURES: 1. Real-time ultrasound-guided access into the right internal jugular vein after documentation of selected vessel patency, and permanent image storing in the patient records. 2. Placement of a 6.0 [place] single-lumen power port. CLINICIAN: Dale Maddox PA-C MEDICATIONS: - Versed 1 mg, Fentanyl 50 mcg, Lidocaine 1% 10 mL SQ -Antibiotics: Ancef 2g -For additional details, please see nursing flowsheet. Complications: None. Estimated blood loss: <5 ml Specimens: None. Contrast: None. Fluoroscopy time: 1.0 min MODERATE SEDATION TIME: 25 min PROCEDURE NOTE: The procedure, risks, benefits, and alternatives were carefully explained to the patient and written informed consent was obtained. The patient was placed supine on the fluoroscopy table. A timeout was performed. The right neck and chest was prepped and draped in usual sterile fashion. Maximum barrier technique was utilized. Local anesthesia was administered to the access site with 1% lidocaine. Under ultrasound guidance, the right internal jugular vein was accessed with a 5 fr micropuncture set. A 0.035 in wire was advanced into the IVC. A peel-away sheath was advanced over the wire and into the SVC, and the wire was removed. Next, subcutaneous lidocaine was administered to the chest. The port pocket was created after the skin incision, utilizing blunt dissection. Using blunt dissection, a subcutaneous tunnel was created that connects from the port pocket to the venotomy site. Through the peel-away sheath, the 6.0 [place] port catheter was placed. The catheter position was verified with fluoroscopy to be at the superior vena cava/right atrial junction. The port was connected to the catheter and was placed in the pocket. The venotomy site was closed with a 3-0 Vicryl subcutaneous suture. The port incision site was closed with interrupted 3-0 Vicryl subcutaneous sutures and surgical glue. Prior to closing the skin, 1 g of Ancef solution was placed in the pocket. The port was tested, flushed, and packed with heparin per routine protocol. The patient tolerated the procedure well. The patient was stable after the procedure and was transferred to the PACU. The procedure was performed under moderate sedation and with a dedicated nurse with continuous monitoring of vital signs. A permanent image of the ultrasound the neck and fluoroscopic image of the chest was saved and sent to PACS. FINDINGS: 1. Patent right internal jugular vein 2. Placement of a 6.0 [place] single lumen power port. 3. Port flushes and aspirates very well with a 10 mL syringe. No pneumothorax. IR/IR cvc insert tunnel w prt/trench shovel operator IMPRESSION: Placement of a 6.0 [place] single-lumen power port. PLAN: - The patient will be discharged home when stable by sedation protocol. - Port may be used immediately. This procedure was performed by Dale Maddox PA-C, and directly supervised by Dr. Waddell. Electronically signed by: Enrique Waddell MD 07/24/2024 05:26 PM EDT
[2024-07-24 09:02] LABS: MANUAL DIFF FLAG NO
[2024-07-24 09:09] LABS: Basophils Percent Auto 0.4 % (0-2); Eosinophils Absolute Auto 0.2 X10*3/uL (0.0-0.4); Eosinophils Percent Auto 1.8 % (0-4); Hematocrit 38.3 % (42.0-52.0); Hemoglobin 12.3 g/dl (14.0-18.0); Imm Gran Abs Auto 0.04 X10*3/uL (0.00-0.03); Imm Gran Pct Auto 0.4 % (0.0-0.4); Lymphocytes Absolute Auto 0.8 X10*3/uL (1.2-4.9); Lymphocytes Percent Auto 9.1 % (20-40); Mean Corpuscular HGB Conc 32.1 g/dl (31.0-36.0); Mean Corpuscular Hemoglobin 29.1 pg (27.0-33.0); Mean Corpuscular Volume 90.5 fL (80.0-98.0); Mean Platelet Volume 9.5 fL (9.4-12.4); Monocytes Absolute Auto 0.7 X10*3/uL (0.1-1.2); Monocytes Percent Auto 7.6 % (2-11); Neutrophils Absolute Auto 7.3 x10*3/uL (2.0-8.3); Neutrophils Percent Auto 80.7 % (45-73); Platelet Count 351 X10*3/uL (160-400); Red Blood Count 4.23 X10*6/uL (4.60-5.80); Red Cell Distribution Width 14.2 % (11.0-16.0)
[2024-07-24 09:17] LABS: Anion Gap 16 (12-20); Blood Urea Nitrogen 17 mg/dL (9-16); Calcium 8.9 mg/dL (8.4-10.2); Carbon Dioxide 20 mmol/L (22-29); Chloride 109 mmol/L (96-108); Creatinine Clr Calc Pharmacy 52.1; Estimated Glomerular Filt Rate > 60; Glucose Random 99 mg/dL (60-115); Potassium 4.2 mmol/L (3.3-5.1); Sodium 141 mmol/L (135-145)
[2024-07-24 09:34] LABS: Prothrombin Time 11.1 SEC (10.9-12.4)
--- NOTE | 2024-07-24 09:45 | MHC.SHP ---
Pre-Procedural Eval Section A - 24 Hr Update-Section A only Date of Service: 07/24/24 Section B - Complete if H&P > 30 days Chief Complaint: NON HODGKIN LYMPHOMA Details of Present Illness: 73 y/o man with NHL and poor iv access Relevant Family History (Specify if Yes): No Relevant Social History: Tobacco Use Present Medications: see Short Stay Collaborative assessment Medical History: Significant History History of Previous Operations: Relevant previous surgery/procedure and date(s) (r axillary ln excision) Allergies: Allergies Allergy/AdvReac Type Severity Reaction Status Date / Time No Known Allergies Allergy Verified 07/16/24 06:52 [No Known Allergies*] Review of Systems Sugical H&P ROS: Negative: Constitution, Cardiovascular, Respiratory and Integumentary Exam Surgical H&P Exam: Normal: Heart, Normal: Lungs, Normal: Skin and Normal: Neurological Plan 73 y/o man with NHL -Port Time Spent With Patient Time: Total time managing care of this patient today ____ minutes.
[2024-07-24] MEDS: Acetaminophen 1,000 MG/100 ML PIGGYBACK 400 MG IV (10:09)
[2024-07-24] MEDS: ceFAZolin Sodium/Dextrose,Iso 2 GM/50 ML PIGGYBACK IV (10:17)
[2024-07-24] MEDS: fentaNYL citrate/PF 100 MCG/2 ML VIAL 50 MCG IVPUSH (10:27)
[2024-07-24] MEDS: Midazolam HCl 2 MG/2 ML VIAL 1 MG IVPUSH (10:27)
== END 2024-07-24 11:31 | disposition home or self-care (01) ==
PROVIDERS: Physician Assistant Surgical; Radiology Diagnostic Radiology; PCP Nurse Practitioner Family; Visit Provider Surgery
DX: Z45.2 Encounter for adjustment and management of vascular access device (principal); C85.90 Non-Hodgkin lymphoma, unspecified, unspecified site; D64.9 Anemia, unspecified; I10 Essential (primary) hypertension; E78.5 Hyperlipidemia, unspecified; N13.2 Hydronephrosis with renal and ureteral calculous obstruction; F17.210 Nicotine dependence, cigarettes, uncomplicated
CPT/HCPCS: 36415; 36558; 36561; 80048; 85025; 85610; 99152; 99153; C1769; C1788; J0131; J0690; J1642; J1644; J2003; J2250; J3010

== ENCOUNTER → 2024-07-24 08:31 | Outpatient (BNV) | payer MEDICARE, MEDICAID, SELFPAY | PROVIDERS: PCP Nurse Practitioner Family; Visit Provider Physician Assistant Surgical | DX: C85.90 Non-Hodgkin lymphoma, unspecified, unspecified site (principal) | CPT/HCPCS: 36558; 76937 ==

== ENCOUNTER 2024-08-28 08:07 | Outpatient (AMB) | payer MEDICARE, SELFPAY ==
--- NOTE | 2024-08-28 08:20 | MHC.OFFVIS ---
Intake Visit Reasons: 6M follow up Intake Note: Patient is present for 6 month follow up Urology Medication:vitamin c,vitamin b12,methanamine hippurfate,bethanechol chloride Antibiotic Allergy:none Blood Thinner:none PVR:108ml Marble Worker Required: No Allergies No Known Allergies [No Known Allergies*] Allergy (Verified 08/28/24 08:23) HPI Comments Details: Dale is a pleasant male. He is a patient of Dr. Asencio. he seen for the following urologic conditions - neurogenic bladder Today's PVR 100, prior PVR 0 On bethanechol with vitamin-C and methenamine Has B-cell lymphoma undergoing therapy Bladder irritation Restart Flomax plus oxybutynin Wanting regarding retention Urinary Symptoms Review - Frequent urination every 5-10 minutes - Incomplete bladder voiding - Bladder irritation related to chemotherapy - Use of methenamine and vitamin B12 for bladder management - Previous satisfactory urinary stream prior to current chemotherapy regime Would continue with six-month PVR Tries to avoid coffee Lower Urinary Tract Symptoms: Hypotonic bladder Prior treatments include 09/09 office laser procedure 04/12 laser anterior tissue - post procedure retention and hematuria, recurring UTI. - 08/11 suppression antibiotics 3 months Keflex Prostate Symptom Score Moderate (9-19), Bother 3. Symptoms include weak stream, nocturia (>2), and are improving. Results from testing include cystoscopy Trilobar hypertrophy 10/08, 01/09 anterior tissue renal/bladder us Yes date 01/03/2017 PVR 122 prostate size 95 Prior Prostate Score severe. PSA 12/09 3.65, 01/10 4.9, 08/11 1.8. Prostate volume 50+gm. Testing at next visit will include PVR PFSH Medical History Hypotonic neurogenic bladder Anemia Dyslipidemia HTN (hypertension) BPH (benign prostatic hyperplasia) Back pain Mass of right inguinal region Radiculitis, cervical Surgical History H/O colonoscopy History of transurethral resection of prostate Webbed fingers of both hands Family History Father Chewing tobacco use Mother Skin cancer Smoker Brother No problems noted. Sister No problems noted. Daughter No problems noted. Social History Housing: Apartment Are you a primary child care supervisor to a significant other at home: No Do you presently have visiting nurse or other home services: No Alcohol intake: former Patient Tobacco Use Status: Current everyday Tobacco user Tobacco use type: Cigarette Cigarette Packs Per Day: 1 Cigarettes Per Day: 10 Years Smoked: 50 e-Cigarette/Vaping Use: Never Used Second Hand Smoke Exposure: No Advance Directives Date on File: 04/11/23 service: No Current occupational status: retired Cognitive needs: No Hearing needs: No Vision needs: No Review of Systems Const Denies chills and Denies fever(s) Card Reports no additional complaints and Denies syncope Resp Denies cough GI Denies abdominal pain and Denies heartburn Reports as per HPI and Denies change in libido Neuro Denies syncope Psych Denies change in libido Endo Denies change in libido Physical Exam Const General: cooperative, healthy appearing, comfortable and no acute distress Orientation/consciousness: patient oriented x3 HEENT Face and sinus: Yes normal facial exam Mouth: moist mucous membranes Neck Neck: Yes normal visual inspection, Yes full ROM and Yes trachea midline Chest Chest palpation & inspection: normal inspection of the chest Resp Effort & Inspection: normal respiratory effort, able to speak in complete sentences and no respiratory distress GI Inspection: Yes normal to inspection Back/Spine/Pelvis Cervical Spine: normal cervical lordosis Thoracic/Lumbar Spine: thoracic and lumbar spine normal to inspection Skin General skin exam: no rashes or lesions noted Neuro General: patient oriented x3, gait normal, tone normal and moves all extremities Extrem General: Yes normal to inspection and Yes capillary refill normal Assessment & Plan Assessment & Plan (1) BPH loc w urin obs/LUTS: Code(s): N40.1 - Benign prostatic hyperplasia with lower urinary tract symptoms Category: Medical (2) Urinary urgency: Code(s): R39.15 - Urgency of urination Category: Medical (3) Recurrent UTI (urinary tract infection): Comment: Failed suppression for 3 months September 2019 Code(s): N39.0 - Urinary tract infection, site not specified Category: Medical Plan 1. Neurogenic Bladder Continue vitamin B12, methenamine. Add Flomax for urinary flow. Prescribe low-dose oxybutynin with retention monitoring. Cease if retention occurs. 2. B-Cell Lymphoma Current chemotherapy with cyclophosphamide, doxorubicin. Urinary symptom management prioritized. No interruption to cancer treatment. 3. Bladder Irritation Chemo-Induced Increase fluid intake. Monitor kidney function. Oxybutynin prescribed. Scheduled reassessment in three months. Discussion Notes During the visit, I discussed with the patient and provided detailed instructions on managing neurogenic bladder symptoms exacerbated by chemotherapy. I highlighted the importance of maintaining hydration to prevent concentrated urine and consequent bladder irritation. We explored pharmacological options including the addition of Flomax to aid urinary flow and oxybutynin to manage bladder irritation, with clear instructions on monitoring for potential urinary retention. I emphasized that contacting the office is necessary should symptoms worsen. Regular follow-up in three months was agreed upon to monitor progress and treatment effectiveness. Patient Instructions - Take prescribed Flomax and oxybutynin as directed - Stop oxybutynin if experiencing urinary retention - Increase fluid intake to prevent concentrated urine - Monitor and report any worsening of symptoms immediately - Continue current cancer treatment regimen without changes - Return for follow-up in three months for reassessment. Medications: New oxybutynin chloride ER 5 mg PO DAILY 30 days 30 tabs 1RF N40.1 - Benign prostatic hyperplasia with lower urinary tract symptoms, R39.14 - Feeling of incomplete bladder emptying tamsulosin 0.4 mg PO BEDTIME 30 days 30 caps 1RF N40.1 - Benign prostatic hyperplasia with lower urinary tract symptoms, R35.1 - Nocturia, R39.14 - Feeling of incomplete bladder emptying Refilled methenamine hippurate 1 g PO DAILY 90 days 90 tabs 1RF N39.0 - Urinary tract infection, site not specified ascorbic acid (vitamin C) 1 g PO DAILY 90 days 90 tabs 1RF N39.0 - Urinary tract infection, site not specified bethanechol chloride 50 mg PO BID 90 days 180 tabs 1RF N40.1 - Benign prostatic hyperplasia with lower urinary tract symptoms, R39.14 - Feeling of incomplete bladder emptying Patient Instructions: This note is constructed using voice recognition software. While every effort has been made to ensure accuracy door and arrival attendant errors may have been included. Imaging studies, laboratory and physical exam results were discussed and reviewed in detail. No major barriers to patient understanding were identified. An opportunity to ask questions regarding the treatment plan was provided. All questions were answered. The patient expressed understanding and agreement with the above treatment plan. The patient is aware they should contact our office by phone for worsening of their current condition or the appearance of new urologic symptoms. Compliance is encouraged with any medications and followup testing that is ordered. It is a privilege to participate in the urologic care of your patient. If you have any questions or concerns regarding treatment for the above conditions, or other urologic issues, please do not hesitate to contact me. The office telephone contact is [phone]. Sincerely, Dr Clint Wong MD, [facility] - Urology Compassionate Specialist Care for the Genitourinary System Coding Level of Care Code Est Pt Level 4 (76342) Complex EM visit Add On G2211 Diagnoses BPH loc w urin obs/LUTS N40.1 Urinary urgency R39.15 Recurrent UTI (urinary tract infection) N39.0
== END 2024-08-28 08:54 | disposition home or self-care (01) ==
LOC: HO.HUSH 08:07
PROVIDERS: PCP Nurse Practitioner Family; Visit Provider Urology
DX: N40.1 Benign prostatic hyperplasia with lower urinary tract symptoms (principal); R39.15 Urgency of urination; N39.0 Urinary tract infection, site not specified; Z13.9 Encounter for screening, unspecified
CPT/HCPCS: 99214; G2211

== ENCOUNTER → 2024-08-28 08:07 | Outpatient (BNVA) | payer MEDICARE, SELFPAY | PROVIDERS: PCP Nurse Practitioner Family; Visit Provider Urology | DX: N40.1 Benign prostatic hyperplasia with lower urinary tract symptoms (principal); N39.0 Urinary tract infection, site not specified; R39.15 Urgency of urination | CPT/HCPCS: 81003; 99212 ==

== ENCOUNTER 2024-11-27 08:40 | Outpatient (AMB) | payer MEDICARE, SELFPAY ==
--- NOTE | 2024-11-27 08:49 | MHC.OFFVIS ---
Intake Visit Reasons: 3m follow up/ PVR/UA Intake Note: Patient is present for: 3mo follow up Urology Medication:vitamin b12 Blood Thinner:none PVR: 71mls Director Of Slot Operations Required: No Accompanied by: Self / Same As Patient Allergies No Known Allergies (No Known Allergies*) Allergy (Verified 11/27/24 08:50) HPI Comments Details: Dale is a pleasant male. He is a patient of Dr. Asencio. he seen for the following urologic conditions - neurogenic bladder Six-month review Continues with symptoms Continue with medications On bethanechol with vitamin-C and methenamine Maintaining bladder emptying Has B-cell lymphoma undergoing therapy Bladder irritation - required Flomax and oxybutynin Urinary Symptoms Review - Frequent urination every 5-10 minutes - Incomplete bladder voiding - Bladder irritation related to chemotherapy - Use of methenamine and vitamin B12 for bladder management - Previous satisfactory urinary stream prior to current chemotherapy regime Would continue with six-month PVR Tries to avoid coffee Lower Urinary Tract Symptoms: Hypotonic bladder Prior treatments include 09/09 office laser procedure 04/12 laser anterior tissue - post procedure retention and hematuria, recurring UTI. - 08/11 suppression antibiotics 3 months Keflex Prostate Symptom Score Moderate (9-19), Bother 3. Symptoms include weak stream, nocturia (>2), and are improving. Results from testing include cystoscopy Trilobar hypertrophy 10/08, 01/09 anterior tissue renal/bladder us Yes date 01/03/2017 PVR 122 prostate size 95 Prior Prostate Score severe. PSA 12/09 3.65, 01/10 4.9, 08/11 1.8. Prostate volume 50+gm. Testing at next visit will include PVR PFSH Medical History Hypotonic neurogenic bladder Anemia Dyslipidemia HTN (hypertension) BPH (benign prostatic hyperplasia) Back pain Mass of right inguinal region Radiculitis, cervical Surgical History H/O colonoscopy History of transurethral resection of prostate Webbed fingers of both hands Family History Father Chewing tobacco use Mother Skin cancer Smoker Brother No problems noted. Sister No problems noted. Daughter No problems noted. Social History Housing: Apartment Are you a primary hospice care sales consultant to a significant other at home: No Do you presently have visiting nurse or other home services: No Alcohol intake: former Patient Tobacco Use Status: Current everyday Tobacco user Tobacco use type: Cigarette Cigarette Packs Per Day: 1 Cigarettes Per Day: 10 Years Smoked: 50 e-Cigarette/Vaping Use: Never Used Second Hand Smoke Exposure: No Advance Directives Date on File: 04/11/23 service: No Current occupational status: retired Cognitive needs: No Hearing needs: No Vision needs: No Review of Systems Const Denies chills and Denies fever(s) Card Reports no additional complaints and Denies syncope Resp Denies cough GI Denies abdominal pain and Denies heartburn Reports as per HPI and Denies change in libido Neuro Denies syncope Psych Denies change in libido Endo Denies change in libido Physical Exam Const General: cooperative, healthy appearing, comfortable and no acute distress Orientation/consciousness: patient oriented x3 HEENT Face and sinus: Yes normal facial exam Mouth: moist mucous membranes Neck Neck: Yes normal visual inspection, Yes full ROM and Yes trachea midline Chest Chest palpation & inspection: normal inspection of the chest Resp Effort & Inspection: normal respiratory effort, able to speak in complete sentences and no respiratory distress GI Inspection: Yes normal to inspection Back/Spine/Pelvis Cervical Spine: normal cervical lordosis Thoracic/Lumbar Spine: thoracic and lumbar spine normal to inspection Skin General skin exam: no rashes or lesions noted Neuro General: patient oriented x3, gait normal, tone normal and moves all extremities Extrem General: Yes normal to inspection and Yes capillary refill normal Office Procedures Post Void Residual Post Residual Void Post Void Residual (PVR): 71 [id number] Void Residual by ultrasound Results AMB Urinalysis, Automated UA Leukoctes 0 Ten/uL Last Edit by SALVADOR Russell on 11/27/24 09:02 UA Nitrite Negative Last Edit by SALVADOR Russell on 11/27/24 09:02 UA Urobilinogen 0.2 mg/dL Last Edit by SALVADOR Russell on 11/27/24 09:02 UA Protein 30 mg/dL Last Edit by SALVADOR Russell on 11/27/24 09:02 UA pH 6.0 Last Edit by SALVADOR Russell on 11/27/24 09:02 UA Blood 0 Eris/uL Last Edit by SALVADOR Russell on 11/27/24 09:02 UA Specific [place] 1.020 Last Edit by SALVADOR Russell on 11/27/24 09:02 UA Ketone Negative Last Edit by SALVADOR Russell on 11/27/24 09:02 UA Bilirubin 0 mg/dL Last Edit by SALVADOR Russell on 11/27/24 09:02 UA Glucose 0 mg/dL Last Edit by SALVADOR Russell on 11/27/24 09:02 Results Reviewed Results Reviewed: Laboratory Last Values Urine pH (Auto) 6.0 11/27/24 09:02 Specific [place] (Auto) 1.020 11/27/24 09:02 Urine Protein (Auto) 30 mg/dL 11/27/24 09:02 Glucose (UA)(Auto) 0 mg/dL 11/27/24 09:02 Urine Ketones (Auto) Negative 11/27/24 09:02 Urine Blood (Auto) 0 Eris/uL 11/27/24 09:02 Urine Nitrite (Auto) Negative 11/27/24 09:02 Urine Bilirubin (Auto) 0 mg/dL 11/27/24 09:02 Urine Urobilinogen (Auto) 0.2 mg/dL 11/27/24 09:02 Leukocyte Esterase (Auto) 0 Ten/uL 11/27/24 09:02 Assessment & Plan Assessment & Plan (1) BPH loc w urin obs/LUTS: Code(s): N40.1 - Benign prostatic hyperplasia with lower urinary tract symptoms Category: Medical (2) Urinary urgency: Code(s): R39.15 - Urgency of urination Category: Medical (3) Incomplete emptying of bladder due to benign prostatic hyperplasia: Code(s): N40.1 - Benign prostatic hyperplasia with lower urinary tract symptoms; R39.14 - Feeling of incomplete bladder emptying Category: Medical Plan Six-month follow-up Orders: Orders AMB Post Void Residual by ultrasound Today N40.1 - Benign prostatic hyperplasia with lower urinary tract symptoms AMB Urinalysis Automated Today Z13.9 - Encounter for screening, unspecified Medications: Changed From oxybutynin chloride ER 5 mg PO DAILY 30 days 30 tabs 1RF N40.1 - Benign prostatic hyperplasia with lower urinary tract symptoms, R39.14 - Feeling of incomplete bladder emptying To oxybutynin chloride ER 5 mg PO DAILY 90 tabs 1RF 90 days N40.1 - Benign prostatic hyperplasia with lower urinary tract symptoms, R39.14 - Feeling of incomplete bladder emptying From tamsulosin 0.4 mg PO BEDTIME 30 days 30 caps 1RF N40.1 - Benign prostatic hyperplasia with lower urinary tract symptoms, R35.1 - Nocturia, R39.14 - Feeling of incomplete bladder emptying To tamsulosin 0.4 mg PO BEDTIME 90 caps 1RF 90 days N40.1 - Benign prostatic hyperplasia with lower urinary tract symptoms, R35.1 - Nocturia, R39.14 - Feeling of incomplete bladder emptying Refilled ascorbic acid (vitamin C) 1 g PO DAILY 90 tabs 1RF 90 days N39.0 - Urinary tract infection, site not specified bethanechol chloride 50 mg PO BID 180 tabs 1RF 90 days N40.1 - Benign prostatic hyperplasia with lower urinary tract symptoms, R39.14 - Feeling of incomplete bladder emptying methenamine hippurate 1 g PO DAILY 90 tabs 1RF 90 days N39.0 - Urinary tract infection, site not specified Patient Instructions: This note is constructed using voice recognition software. While every effort has been made to ensure accuracy calculating machine operator errors may have been included. Imaging studies, laboratory and physical exam results were discussed and reviewed in detail. No major barriers to patient understanding were identified. An opportunity to ask questions regarding the treatment plan was provided. All questions were answered. The patient expressed understanding and agreement with the above treatment plan. The patient is aware they should contact our office by phone for worsening of their current condition or the appearance of new urologic symptoms. Compliance is encouraged with any medications and followup testing that is ordered. It is a privilege to participate in the urologic care of your patient. If you have any questions or concerns regarding treatment for the above conditions, or other urologic issues, please do not hesitate to contact me. The office telephone contact is [phone]. Sincerely, Dr Clint Wong MD, [facility] - Urology Compassionate Specialist Care for the Genitourinary System Coding Level of Care Code Est Pt Level 3 (92001) Complex EM visit Add On G2211 Diagnoses BPH loc w urin obs/LUTS N40.1 Urinary urgency R39.15 Incomplete emptying of bladder due to benign prostatic hyperplasia N40.1; R39.14 CPT Codes Post Residual Void - PVR CPT Code: 66836-[id number] Void Residual by ultrasound ([id number])
== END 2024-11-27 09:41 | disposition home or self-care (01) ==
LOC: HO.HUSH 08:41
PROVIDERS: PCP Nurse Practitioner Family; Visit Provider Urology
DX: N40.1 Benign prostatic hyperplasia with lower urinary tract symptoms (principal); R39.15 Urgency of urination; R39.14 Feeling of incomplete bladder emptying; Z13.9 Encounter for screening, unspecified
CPT/HCPCS: 99213; G2211

== ENCOUNTER → 2024-11-27 08:40 | Outpatient (BNVA) | payer MEDICARE, SELFPAY | PROVIDERS: PCP Nurse Practitioner Family; Visit Provider Urology | DX: N40.1 Benign prostatic hyperplasia with lower urinary tract symptoms (principal); R39.15 Urgency of urination; R39.14 Feeling of incomplete bladder emptying | CPT/HCPCS: 51798; 81003; 99212 ==